=== PATIENT | male | born 1975 | race Caucasian/White ===

== ENCOUNTER 2017-04-12 10:35 | Emergency (ER) | payer BC ==
[2017-04-12] MEDS ORDERED: Sodium Chloride 0.9% 10 ML Syringe FLUSH PRN (10:40)
[2017-04-12] MEDS ORDERED: Sodium Chloride 0.9% 1,000 ML IV SCH (10:45)
[2017-04-12] MEDS ORDERED: LORazepam 2 MG/ML MDV IVPUSH ONE (10:49)
--- NOTE | 2017-04-12 10:56 | EDM.PDOC ---
ED HPI GENERAL MEDICAL PROBLEM - General Chief Complaint: Cardiovascular Problem Stated Complaint: LEFT ARM NUMBNESS; NECK PAIN; CHEST PAIN Time Seen by Provider: 04/12/17 10:39 Source of Information: Reports: Patient, Family, RN, RN Notes Reviewed History Limitations: Reports: No Limitations - History of Present Illness INITIAL COMMENTS - FREE TEXT/NARRATIVE: Patient presents to the emergency room at [facility] complaining of left arm numbness, bilateral neck pain, and acute chest pain. The patient's symptoms began about one hour prior to presentation. The patient states that his left arm feels "like it fell asleep." The patient states that his chest pain is substernal, more so on the left side. He denies any shortness of breath. The patient states he currently has a headache. The patient denies any visual field disturbances. The patient complains of dizziness and ataxia. The patient does have a medical history of hypertension and anxiety. No previous cardiac or neurological problems in the past. The patient denies any tingling or paresthesia to any extremity. The patient denies any nausea vomiting or diarrhea. Onset: Today Onset Date: 04/12/17 Onset Time: 10:00 - Related Data Home Meds: Home Meds Aspirin 325 mg PO DAILY 04/12/17 [History] LORazepam 0.5 mg PO BID PRN 04/12/17 [History] Lisinopril 10 mg PO DAILY 04/12/17 [History] Metoprolol Succinate [Toprol XL] 50 mg PO DAILY 04/12/17 [History] PARoxetine [Paxil] 20 mg PO DAILY 04/12/17 [History] ED ROS GENERAL - Review of Systems Review Of Systems: See Below Constitutional: Reports: Weakness. Denies: Fever, Chills Respiratory: Denies: Shortness of Breath, Cough Cardiovascular: Reports: Chest Pain, Blood Pressure Problem, Lightheadedness. Denies: Palpitations, Syncope GI/Abdominal: Denies: Abdominal Pain, Nausea, Vomiting Musculoskeletal: Reports: Neck Pain, Muscle Pain Skin: Reports: No Symptoms Neurological: Reports: Dizziness, Headache, Numbness. Denies: Paresthesia, Tingling ED EXAM, GENERAL - Physical Exam Exam: See Below Exam Limited By: No Limitations General Appearance: Alert, Mild Distress Eye Exam: Bilateral Eye: EOMI, Normal Inspection, PERRL Head: Atraumatic, Normocephalic Neck: Limited Range of Motion (due to pain), Tender Lateral Respiratory/Chest: No Respiratory Distress, Lungs Clear, Normal Breath Sounds Cardiovascular: Normal Peripheral Pulses, Regular Rate, Rhythm, No Murmur Peripheral Pulses: 2+: Radial (L), Radial (R) GI/Abdominal: Normal Bowel Sounds, Soft, Non-Tender Extremities: Normal Inspection, Normal Range of Motion Neurological: Alert, Oriented, Normal Cognition, No Motor/Sensory Deficits Skin Exam: Warm, Dry, Intact, Normal Color, No Rash EKG INTERPRETATION EKG Date: 04/12/17 Time: 10:41 Rhythm: NSR Rate (beats/min): 69 [place]: normal P-wave: present QRS: normal ST-T: normal QT: normal WA/PQ Interval: 0.16 Comparison: NA - no prior EKG EKG Interpretation Comments: Sinus Rhythm with sinus arrhythmia Voltage criteria for LVH Course - Orders/Labs/Meds Orders: Active Orders 24 hr Category Date Time Status EKG 12 Lead [EKG Documentation Completion] [RC] STAT Care 04/12/17 10:40 Active Cervical Spine wo Cont [CT] Stat Exams 04/12/17 10:43 Taken Head wo Cont [CT] Stat Exams 04/12/17 10:41 Taken Sodium Chloride 0.9% [Normal Saline] 1,000 ml Med 04/12/17 10:45 Active IV ASDIRECTED Sodium Chloride 0.9% [Saline Flush] Med 04/12/17 10:40 Active 10 ml FLUSH ASDIRECTED PRN Peripheral IV Insertion Adult [OM.PC] Routine Oth 04/12/17 10:40 Ordered Medication Orders Sodium Chloride (Normal Saline) 1,000 mls @ 999 mls/hr IV ASDIRECTED [facility] Last Admin: 04/12/17 10:53 Dose: 999 mls/hr Sodium Chloride (Saline Flush) 10 ml FLUSH ASDIRECTED PRN PRN Reason: Keep Vein Open Labs: Laboratory Tests 04/12/17 04/12/17 04/12/17 Range/Units 10:53 10:53 10:53 WBC 7.5 (4.0-10.0) x10^3/uL RBC 4.82 (4.5-6.0) x10^6/uL Hgb 15.2 (14.0-18.0) g/dL Hct 43.8 (40.0-52.0) % MCV 90.9 (78.0-93.0) fL MCH 31.5 (26.0-32.0) pg MCHC 34.7 (32.0-36.0) g/dL RDW Coeff of Ben 13.3 (10.0-15.0) % Plt Count 231 (130-400) x10^3/uL Neut % (Auto) 66.9 (50.0-80.0) % Lymph % (Auto) 20.7 L (25.0-50.0) % [place] % (Auto) 9.5 (2.0-11.0) % Eos % (Auto) 2.6 (0.0-4.0) % Baso % (Auto) 0.3 (0.2-1.2) % PT 10.8 (10.0-12.8) SEC INR 1.0 L (2.0-3.5) Sodium 137 (136-145) mmol/L Potassium 4.4 (3.5-5.1) mmol/L Chloride 99 (98-107) mmol/L Carbon Dioxide 31 (21-32) mmol/L BUN 9 (7-18) mg/dL Creatinine 0.9 (0.70-1.30) mg/dL Est Cr Clr Drug Dosing TNP Estimated GFR (MDRD) > 60 Glucose 99 (74-106) mg/dL Calcium 9.0 (8.5-10.1) mg/dL Corrected Calcium 9.16 (8.5-10.1) mg/dL Phosphorus 3.3 (2.6-4.7) mg/dL Magnesium 1.7 L (1.8-2.4) mg/dL Total Bilirubin 0.3 (0.2-1.0) mg/dL AST 16 (15-37) U/L ALT 28 (16-63) U/L Alkaline Phosphatase 78 (46-116) U/L Creatine Kinase 67 (39-308) U/L Creatine Kinase Index Cancelled CK-MB (CK-2) Cancelled POC Troponin I (0.00-0.08) ng/mL Total Protein 8.0 (6.4-8.2) g/dL Albumin 3.8 (3.4-5.0) g/dL Globulin 4.2 Albumin/Globulin Ratio 0.90 05/28/17 Range/Units 10:59 WBC (4.0-10.0) x10^3/uL RBC (4.5-6.0) x10^6/uL Hgb (14.0-18.0) g/dL Hct (40.0-52.0) % MCV (78.0-93.0) fL MCH (26.0-32.0) pg MCHC (32.0-36.0) g/dL RDW Coeff of Ben (10.0-15.0) % Plt Count (130-400) x10^3/uL Neut % (Auto) (50.0-80.0) % Lymph % (Auto) (25.0-50.0) % [place] % (Auto) (2.0-11.0) % Eos % (Auto) (0.0-4.0) % Baso % (Auto) (0.2-1.2) % PT (10.0-12.8) SEC INR (2.0-3.5) Sodium (136-145) mmol/L Potassium (3.5-5.1) mmol/L Chloride (98-107) mmol/L Carbon Dioxide (21-32) mmol/L BUN (7-18) mg/dL Creatinine (0.70-1.30) mg/dL Est Cr Clr Drug Dosing Estimated GFR (MDRD) Glucose (74-106) mg/dL Calcium (8.5-10.1) mg/dL Corrected Calcium (8.5-10.1) mg/dL Phosphorus (2.6-4.7) mg/dL Magnesium (1.8-2.4) mg/dL Total Bilirubin (0.2-1.0) mg/dL AST (15-37) U/L ALT (16-63) U/L Alkaline Phosphatase (46-116) U/L Creatine Kinase (39-308) U/L Creatine Kinase Index CK-MB (CK-2) POC Troponin I 0.00 (0.00-0.08) ng/mL Total Protein (6.4-8.2) g/dL Albumin (3.4-5.0) g/dL Globulin Albumin/Globulin Ratio Meds: Medications Generic Name Dose Route Start Last Admin Trade Name Freq PRN Reason Stop Dose Admin Sodium Chloride 1,000 mls @ 999 mls/hr 04/12/17 10:45 04/12/17 10:53 Normal Saline IV 999 mls/hr ASDIRECTED JIM Administration Sodium Chloride 10 ml 04/12/17 10:40 Saline Flush FLUSH ASDIRECTED PRN Keep Vein Open Discontinued Medications Generic Name Dose Route Start Last Admin Trade Name Freq PRN Reason Stop Dose Admin Lorazepam 1 mg 04/12/17 10:49 04/12/17 10:59 Ativan IVPUSH 04/12/17 10:50 1 mg ONETIME ONE Administration - Radiology Interpretation Free Text/Narrative:: CT of Head: No plain CT evidence of acute intracranial process CT of C-Spine: No bony abnormality of cervical spine See scanned documents in EMR CT Results Date: 04/12/17 CT Results Time: 11:34 Departure - Departure Time of Disposition: 12:03 Disposition: Home, Self-Care 01 Reason for Transfer *Q: Other Condition: good Clinical Impression: Left arm numbness, Neck pain, Anxiety Instructions: Muscle Pain, Adult, Panic Attacks, [id number] Referrals: Kathie Galaviz MD [Primary Care Provider] - Forms: ED Department Discharge Additional Instructions: 1. All testing was normal; no evidence of stroke or heart attack 2. Stay well hydrated and rest 3. Continue currently medications without any changes 4. See your Primary as symptoms warrant - Problem List Review Problem List Initiated/Reviewed/Updated: Yes - My Orders Last 24 Hours: My Active Orders 04/12/17 10:40 EKG 12 Lead [EKG Documentation Completion] [RC] STAT Sodium Chloride 0.9% [Saline Flush] 10 ml FLUSH ASDIRECTED PRN Peripheral IV Insertion Adult [OM.PC] Routine 04/12/17 10:41 Head wo Cont [CT] Stat 04/12/17 10:43 Cervical Spine wo Cont [CT] Stat 04/12/17 10:45 Sodium Chloride 0.9% [Normal Saline] 1,000 ml IV ASDIRECTED - Assessment/Plan Last 24 Hours: My Active Orders 04/12/17 10:40 EKG 12 Lead [EKG Documentation Completion] [RC] STAT Sodium Chloride 0.9% [Saline Flush] 10 ml FLUSH ASDIRECTED PRN Peripheral IV Insertion Adult [OM.PC] Routine 04/12/17 10:41 Head wo Cont [CT] Stat 04/12/17 10:43 Cervical Spine wo Cont [CT] Stat 04/12/17 10:45 Sodium Chloride 0.9% [Normal Saline] 1,000 ml IV ASDIRECTED
[2017-04-12 11:31] LABS: CHLORIDE,CL 99 mmol/L (98-107); SODIUM,NA 137 mmol/L (136-145)
[2017-04-12 14:03] VITALS: BP 185/106
== END 2017-04-12 12:10 | disposition home or self-care (01) ==
LOC: VM.ED 10:35
DX: M54.2 Cervicalgia (principal); R20.0 Anesthesia of skin; F41.9 Anxiety disorder, unspecified; Z79.82 Long term (current) use of aspirin; Z79.899 Other long term (current) drug therapy
CPT/HCPCS: 36415; 70450; 72125; 80053; 82550; 83735; 84100; 84484; 85025; 85610; 93005; 96361; 96374; 99285; J2060; J7030

== ENCOUNTER 2021-07-09 16:22 | Emergency (ER) | payer SELFPAY ==
--- NOTE | 2021-07-09 16:50 | EDM.PDOC ---
ED HPI GENERAL MEDICAL PROBLEM - General Chief Complaint: Chest Pain Stated Complaint: chest pain Time Seen by Provider: 07/09/21 16:35 Source of Information: Reports: Patient History Limitations: Reports: No Limitations - History of Present Illness INITIAL COMMENTS - FREE TEXT/NARRATIVE: Patient presents ER today with ongoing chest pain that is been intermittent for the last month or so. Patient describes it it lasts a few seconds intermittently throughout the day seems to get worse at night when he is laying down in the bed he describes the pain about a 5 out of 10 and he can sit up and grab his chest and help resolve the pain. He was getting dressed today to come to the ER to get checked out when he noticed that his left arm started hurting as well. He states he has been having some dyspnea on exertion over the last month as well at about 10 to 15 feet. But he denies any orthopnea PND extremity edema. He saw his primary care provider about 2 weeks ago mentioning the chest pain but states he did not receive any type of testing or work-up. He has seen cardiology in the past where he was diagnosed with left ventricular cardiomegaly off of an echo he did have a nuclear stress test but was unable to complete it secondary to something came up during the test. He has never had a cardiac cath Does have a significant cardiac family history he also smokes 1 and half to 2 packs a day and a heavy alcohol usage history he is recently quit about a week and a half ago drinking. He has no other complaints at this time Duration: Week(s): Location: Reports: Chest Quality: Reports: Sharp Improves with: Reports: Other (See HPI) Worsens with: Reports: None, Movement Context: Reports: Activity Associated Symptoms: Reports: Chest Pain. Denies: Confusion, Cough, Diaphoresis, Headaches, Loss of Appetite, Malaise, Nausea/Vomiting, Shortness of Breath, Syncope, Weakness - Related Data Allergies Allergy/AdvReac Type Severity Reaction Status Date / Time No Known Allergies Allergy Verified 07/09/21 16:45 Home Meds: Home Meds Aspirin 325 mg PO DAILY 04/12/17 [History] LORazepam 0.5 mg PO BID PRN 04/12/17 [History] Lisinopril 10 mg PO DAILY 04/12/17 [History] Metoprolol Succinate [Toprol XL] 100 mg PO DAILY 05/28/17 [History] Albuterol Sulfate [Albuterol Sulfate HFA] 8.5 gm INH Q4HR 07/09/21 [History] Escitalopram Oxalate [Lexapro] 5 mg PO DAILY 07/09/21 [History] Gabapentin [Neurontin] 100 mg PO TID 07/09/21 [History] guaiFENesin [Mucinex] 600 mg PO BID 07/09/21 [History] Past Medical History Cardiovascular History: Reports: High Cholesterol, Hypertension Psychiatric History: Reports: Anxiety ED ROS GENERAL - Review of Systems Review Of Systems: See Below Constitutional: Reports: No Symptoms HEENT: Reports: No Symptoms Respiratory: Reports: No Symptoms Cardiovascular: Reports: Chest Pain, Dyspnea on Exertion. Denies: Blood Pressure Problem, Claudication, Edema, Lightheadedness, Orthopnea, Palpitations, PND, Syncope Endocrine: Reports: No Symptoms GI/Abdominal: Reports: No Symptoms : Reports: No Symptoms Musculoskeletal: Reports: No Symptoms Skin: Reports: No Symptoms Neurological: Reports: No Symptoms Psychiatric: Reports: No Symptoms Hematologic/Lymphatic: Reports: No Symptoms Immunologic: Reports: No Symptoms ED EXAM, GENERAL - Physical Exam Exam: See Below Exam Limited By: No Limitations General Appearance: Alert, WD/WN, No Apparent Distress Eye Exam: Bilateral Eye: Normal Inspection Nose: Normal Inspection Throat/Mouth: Normal Inspection, Normal Lips, Normal Teeth, Normal Gums, Normal Oropharynx, Normal Voice, No Airway Compromise Head: Atraumatic, Normocephalic Neck: Normal Inspection, Supple, Non-Tender, Full Range of Motion Respiratory/Chest: No Respiratory Distress, Lungs Clear, Normal Breath Sounds, No Accessory Muscle Use, Chest Non-Tender Cardiovascular: Normal Peripheral Pulses, Regular Rate, Rhythm, No Edema, No Gallop, No JVD, No Murmur, No Rub GI/Abdominal: Normal Bowel Sounds, Soft, Non-Tender, No Organomegaly, No Distention, No Abnormal Bruit Back Exam: Normal Inspection, Full Range of Motion Extremities: Normal Inspection, Normal Range of Motion, Non-Tender, No Pedal Edema, Normal Capillary Refill Neurological: Alert, Oriented, CN II-XII Intact, Normal Cognition Psychiatric: Normal Affect, Normal Mood Skin Exam: Warm, Dry, Intact, Normal Color, No Rash #1 Interpretation EKG Date: 07/09/21 Time: 16:20 Rhythm: NSR Ruby: Normal P-Wave: Present QRS: Normal ST-T: Normal QT: Normal Course - Vital Signs Text/Narrative:: CBC BMP troponin EKG chest x-ray BMP K+ 3.4 trop 5 ekg NSR NAF CXR NAF will have pt f/u with pcp Last Recorded V/S: Last Vital Signs Temp 36.2 C 07/09/21 16:45 Pulse 84 07/09/21 17:06 Resp 16 07/09/21 17:06 BP 118/92 H 07/09/21 17:06 Pulse Ox 98 07/09/21 17:06 - Orders/Labs/Meds Labs: Laboratory Tests 07/09/21 07/09/21 Range/Units 16:40 16:40 WBC 8.1 (4.0-10.0) x10^3/uL RBC 3.77 L (4.5-6.0) x10^6/uL Hgb 13.4 L (14.0-18.0) g/dL Hct 37.7 L (40.0-52.0) % MCV 100.0 H (78.0-93.0) fL MCH 35.5 H (26.0-32.0) pg MCHC 35.5 (32.0-36.0) g/dL RDW Coeff of Ben 13.3 (10.0-15.0) % Plt Count 229 (130-400) x10^3/uL Immature Gran % (Auto) 0.20 (0.00-0.43) % Neut % (Auto) 72.0 (50.0-80.0) % Lymph % (Auto) 18.5 L (25.0-50.0) % [place] % (Auto) 8.7 (2.0-11.0) % Eos % (Auto) 0.4 (0.0-4.0) % Baso % (Auto) 0.2 (0.2-1.2) % Neut # (Auto) 5.8 (1.8-7.7) x10^3/uL Lymph # (Auto) 1.5 (1.0-4.8) x10^3/uL [place] # (Auto) 0.7 (0.0-0.8) x10^3/uL Eos # (Auto) 0.0 (0.0-0.5) x10^3/uL Baso # (Auto) 0.0 (0.0-0.2) x10^3/uL Immature Gran # (Auto) 0.02 (0.00-0.07) x10^3/uL Sodium 135 L (136-145) mmol/L Potassium 3.4 L (3.5-5.1) mmol/L Chloride 96 L (98-107) mmol/L Carbon Dioxide 30 (21-32) mmol/L Anion Gap 12.4 (5-15) mmol/L BUN 13 (7-18) mg/dL Creatinine 1.4 H (0.70-1.30) mg/dL Est Cr Clr Drug Dosing 58.59 mL/min Estimated GFR (MDRD) 54 Glucose 174 H (70-99) mg/dL Calcium 9.1 (8.5-10.1) mg/dL Troponin I High Sens 5 (<=76) ng/L Departure - Departure Time of Disposition: 17:20 Disposition: Home, Self-Care 01 Condition: Good Clinical Impression: Chest pain Instructions: Nonspecific Chest Pain, Adult Referrals: Maribel Sanchez MD [Primary Care Provider] - Forms: ED Department Discharge Additional Instructions: Follow-up with your primary care provider in the next 24 to 48 hours Contact your press clipper that you have seen before for a new appointment and follow-up in the next 2 to 3 days Return to the emergency room if anything gets worse or changes Sepsis Event Note (ED) - Focused Exam Vital Signs: Vital Signs Temp Pulse Resp BP Pulse Ox 07/09/21 17:06 84 16 118/92 H 98 07/09/21 16:45 36.2 C 85 14 139/96 H 98 - Problem List & Annotations (1) Chest pain SNOMED Code(s): 67107562 Code(s): R07.9 - CHEST PAIN, UNSPECIFIED Status: Acute Current Visit: Yes
[2021-07-09 17:07] VITALS: BP 118/92; PULSE 84
[2021-07-09 17:10] LABS: ANION GAP 12.4 mmol/L (5-15)
--- NOTE | 2021-07-09 17:52 | CR ---
[id number] RAD/RAD Chest PA or AP 1V EXAM: RAD Chest PA or AP 1V INDICATION: CHEST PAIN. COMPARISON: June 04, 2020. DISCUSSION: Cardiomediastinal silhouette is stable in size and contour. No infiltrate, effusion, pneumothorax, or edema. IMPRESSION: No acute cardiopulmonary abnormality. Williams Richard DO 07/09/21 [id number] Thank you for allowing us to participate in the care of your patient.
== END 2021-07-09 18:00 | disposition home or self-care (01) ==
LOC: VM.ED 16:22
DX: R07.9 Chest pain, unspecified (principal); I10 Essential (primary) hypertension; F17.210 Nicotine dependence, cigarettes, uncomplicated; Z79.82 Long term (current) use of aspirin; Z79.899 Other long term (current) drug therapy
CPT/HCPCS: 71045; 80048; 84484; 85025; 93010; 99284; 99285-25

== ENCOUNTER 2021-09-21 17:27 | Emergency (ER) | payer SELFPAY ==
[2021-09-21] MEDS ORDERED: Propranolol 60 MG Cap.ER PO ONE (17:47)
[2021-09-21] MEDS ORDERED: Propranolol 20 MG Tab PO ONE (18:02)
[2021-09-21 18:16] LABS: CHLORIDE,CL 99 mmol/L (98-107); SODIUM,NA 136 mmol/L (136-145)
[2021-09-21 18:17] LABS: ANION GAP 15.4 mmol/L (5-15)
[2021-09-21 18:56] VITALS: BP 165/113; PULSE 88
--- NOTE | 2021-09-21 21:45 | EDM.PDOC ---
ED HPI GENERAL MEDICAL PROBLEM - General Chief Complaint: Cardiovascular Problem Stated Complaint: HIGH BP Time Seen by Provider: 09/21/21 17:35 Source of Information: Reports: Patient History Limitations: Reports: No Limitations - History of Present Illness INITIAL COMMENTS - FREE TEXT/NARRATIVE: Pt. presents to ER with complaints of elevated BP and tremor. He states that he has been out of his propranolol LA 80mg for the past several days because he was unable to pay for the medication. He states that he is having some chest tightness, fatigue, and generally feels unwell. Denies any recent illness. No fever or chills. No nausea, vomiting, or diarrhea. Pt. complains of mild headache. Denies any acute vision loss or change. No numbness/tingling in extremities or face. Denies in weakness in upper or lower extremities. Onset: Today Onset Date: 09/21/21 Location: Reports: Head, Generalized Severity: Moderate - Related Data Allergies Allergy/AdvReac Type Severity Reaction Status Date / Time No Known Allergies Allergy Verified 09/21/21 17:53 Home Meds: Home Meds Aspirin 325 mg PO DAILY 04/12/17 [History] Lisinopril 20 mg PO DAILY 04/12/17 [History] Albuterol Sulfate [Albuterol Sulfate HFA] 8.5 gm INH Q4HR 07/09/21 [History] Escitalopram Oxalate [Lexapro] 5 mg PO DAILY 07/09/21 [History] Gabapentin [Neurontin] 100 mg PO TID 07/09/21 [History] Propranolol [Inderal LA] 80 mg PO DAILY 09/21/21 [History] Past Medical History Cardiovascular History: Reports: High Cholesterol, Hypertension Psychiatric History: Reports: Anxiety Social & Family History - Tobacco Use Tobacco Use Status *Q: Current Every Day Tobacco User Years of Tobacco use: 30 Packs/Tins Daily: 0.5 ED ROS GENERAL - Review of Systems Review Of Systems: See Below Constitutional: Reports: Malaise, Fatigue HEENT: Reports: No Symptoms Respiratory: Reports: No Symptoms Cardiovascular: Reports: Chest Pain, Blood Pressure Problem, Dyspnea on Exertion Endocrine: Reports: No Symptoms GI/Abdominal: Reports: No Symptoms : Reports: No Symptoms Musculoskeletal: Reports: No Symptoms Skin: Reports: No Symptoms Neurological: Reports: Headache, Tremors. Denies: Confusion, Dizziness, Paresthesia, Seizure, Syncope, Tingling, Difficulty Walking, Weakness, Change in Speech, Gait Disturbance Psychiatric: Reports: No Symptoms Hematologic/Lymphatic: Reports: No Symptoms Immunologic: Reports: No Symptoms ED EXAM, GENERAL - Physical Exam Exam: See Below Exam Limited By: No Limitations General Appearance: Alert, WD/WN, No Apparent Distress Eye Exam: Bilateral Eye: EOMI, PERRL Head: Atraumatic, Normocephalic Neck: Normal Inspection, Supple, Non-Tender, Full Range of Motion Respiratory/Chest: No Respiratory Distress, Lungs Clear, Normal Breath Sounds, No Accessory Muscle Use, Chest Non-Tender Cardiovascular: Normal Peripheral Pulses, Regular Rate, Rhythm, No Edema, No JVD Peripheral Pulses: 4+: Femoral (L) GI/Abdominal: Soft, Non-Tender, No Distention (Male) Exam: Deferred Rectal (Males) Exam: Deferred Back Exam: Normal Inspection, Full Range of Motion Extremities: Normal Inspection, Normal Range of Motion, Non-Tender, No Pedal Edema, Normal Capillary Refill Neurological: Alert, Oriented, CN II-XII Intact, Normal Cognition, Normal Reflexes Psychiatric: Normal Affect, Normal Mood Skin Exam: Warm, Dry, Intact, Normal Color Lymphatic: No Adenopathy #1 Interpretation Rhythm: NSR Herman: Normal P-Wave: Present QRS: Normal ST-T: Normal QT: Normal Course - Vital Signs Last Recorded V/S: Last Vital Signs Temp 37.1 C 09/21/21 17:30 Pulse 88 09/21/21 18:30 Resp 14 09/21/21 18:30 BP 165/113 H 09/21/21 18:30 Pulse Ox 98 09/21/21 18:30 - Orders/Labs/Meds Labs: Laboratory Tests 09/21/21 09/21/21 Range/Units 17:47 17:47 WBC 7.1 (4.0-10.0) x10^3/uL RBC 4.09 L (4.5-6.0) x10^6/uL Hgb 13.1 L (14.0-18.0) g/dL Hct 37.5 L (40.0-52.0) % MCV 91.7 D (78.0-93.0) fL MCH 32.0 (26.0-32.0) pg MCHC 34.9 (32.0-36.0) g/dL RDW Coeff of Ben 12.6 (10.0-15.0) % Plt Count 239 (130-400) x10^3/uL Immature Gran % (Auto) 0.00 (0.00-0.43) % Neut % (Auto) 67.7 (50.0-80.0) % Lymph % (Auto) 21.4 L (25.0-50.0) % [place] % (Auto) 9.5 (2.0-11.0) % Eos % (Auto) 1.0 (0.0-4.0) % Baso % (Auto) 0.4 (0.2-1.2) % Neut # (Auto) 4.8 (1.8-7.7) x10^3/uL Lymph # (Auto) 1.5 (1.0-4.8) x10^3/uL [place] # (Auto) 0.7 (0.0-0.8) x10^3/uL Eos # (Auto) 0.1 (0.0-0.5) x10^3/uL Baso # (Auto) 0.0 (0.0-0.2) x10^3/uL Immature Gran # (Auto) 0.00 (0.00-0.07) x10^3/uL Sodium 136 (136-145) mmol/L Potassium 3.4 L (3.5-5.1) mmol/L Chloride 99 (98-107) mmol/L Carbon Dioxide 25 (21-32) mmol/L Anion Gap 15.4 H (5-15) mmol/L BUN 8 (7-18) mg/dL Creatinine 0.9 (0.70-1.30) mg/dL Est Cr Clr Drug Dosing TNP Estimated GFR (MDRD) > 60 Glucose 125 H (70-99) mg/dL Calcium 8.9 (8.5-10.1) mg/dL Corrected Calcium 9.5 (8.5-10.1) mg/dL Total Bilirubin 0.4 (0.2-1.0) mg/dL AST 19 (15-37) U/L ALT 15 L (16-63) U/L Alkaline Phosphatase 61 (46-116) U/L Troponin I High Sens 5 (<=76) ng/L Total Protein 7.1 (6.4-8.2) g/dL Albumin 3.3 L (3.4-5.0) g/dL Globulin 3.8 Albumin/Globulin Ratio 0.87 Meds: Medications Discontinued Medications Generic Name Dose Route Start Last Admin Trade Name Gianni PRN Reason Stop Dose Admin Propranolol HCl 80 mg 09/21/21 17:47 09/21/21 18:05 Propranolol 60 Mg Cap.Er PO 09/21/21 17:48 Not Given ONETIME ONE Propranolol HCl 80 mg 09/21/21 18:02 09/21/21 18:05 Propranolol 20 Mg Tab PO 09/21/21 18:03 80 mg ONETIME ONE Administration Propranolol HCl 60 mg 09/22/21 08:00 09/21/21 18:47 Propranolol 60 Mg Cap.Er PO 60 mg DAILY JIM Administration - Re-Assessments/Exams Free Text/Narrative Re-Assessment/Exam: Pt. was given propranolol immediate release 80mg in ER. Pt. was observed. Blood pressure noted to be starting to decrease. He was not longer experiencing any tremor, headache or chest tightness and states that he feels much improved. Departure - Departure Time of Disposition: 19:00 Disposition: Home, Self-Care 01 Clinical Impression: Hypertension Instructions: Propranolol Extended-Release Capsules, Hypertension, Adult Referrals: Maribel Sanchez MD [Primary Care Provider] - Forms: ED Department Discharge Additional Instructions: Take the propranolol pill tomorrow. We do not have the 80mg dose. You will need to fill this on Thursday. Return to ER if you have recurrent chest pain, feel anxious, have increased shortness of breath. Sepsis Event Note (ED) - Focused Exam Vital Signs: Vital Signs Temp Pulse Resp BP Pulse Ox 09/21/21 18:30 88 14 165/113 H 98 09/21/21 17:30 37.1 C 105 H 18 184/129 H 100 - Problem List Review Problem List Initiated/Reviewed/Updated: Yes - Assessment/Plan Plan: Pt. was discharged. Refill for propranolol LA was provided. Unfortunately the 80mg dose of this medication is not available at this facility and pharmacies are closed tomorrow. He was provided with propranolol LA 60mg to take tomorrow if he is unable to get to a pharmacy tomorrow. Return if recurrent chest pain, shortness or breath, problems with speech or ambulation. Otherwise continue with other medications as prescribed.
[2021-09-22] MEDS ORDERED: Propranolol 60 MG Cap.ER PO SCH (08:00)
== END 2021-09-21 18:49 | disposition home or self-care (01) ==
LOC: VM.ED 17:27
DX: I10 Essential (primary) hypertension (principal); E78.00 Pure hypercholesterolemia, unspecified; Z72.0 Tobacco use; Z79.82 Long term (current) use of aspirin; Z79.899 Other long term (current) drug therapy
CPT/HCPCS: 36415; 80053; 84484; 85025; 93010; 99283; 99283-25; A9270-GY

== ENCOUNTER 2021-10-23 11:43 | Emergency (ER) | payer SELFPAY ==
[2021-10-23] MEDS ORDERED: Sodium Chloride 0.9% 10 ML Syringe FLUSH PRN (12:02)
[2021-10-23] MEDS ORDERED: Aspirin 81 MG Tab.Chew PO ONE (12:04)
[2021-10-23 12:41] LABS: CHLORIDE,CL 99 mmol/L (98-107); SODIUM,NA 138 mmol/L (136-145)
[2021-10-23 12:42] LABS: ANION GAP 17.2 mmol/L (5-15)
[2021-10-23] MEDS ORDERED: Iopamidol 755 Mg/ML 100 ML Bottle IVPUSH ONE (14:03)
--- NOTE | 2021-10-23 14:11 | EDM.PDOC ---
ED HPI GENERAL MEDICAL PROBLEM - General Chief Complaint: Cardiovascular Problem Stated Complaint: HEART ISSUES Time Seen by Provider: 10/23/21 11:43 Source of Information: Reports: Patient History Limitations: Reports: No Limitations - History of Present Illness INITIAL COMMENTS - FREE TEXT/NARRATIVE: Pt. presents to ER with numerous complaints, including chest tightness, bila teral arm numbness/discomfort/tingling, neck pain, lightheadedness, and dizziness. He generally feels unwell. Pt. states that the symptoms started this AM. He states that he took his blood pressure at home at was concerned that it was 101/50. His heart rate was approx. 115 according to the machine. Pt. was no longer experiencing chest tightness by the time he got to the ER. Pt. states that he has a history of ETOH abuse but is "cutting back"; he states that he drinks about a 1.75 of grain alcohol in 1 week which is a lot less than previous. Pt. currently on lexapro, lisinopril 10mg daily, Inderal LA 80mg daily for chronic tremor/HTN, lorazepam 0.5mg BID. Pt. states that he is taking his medications as prescribed. Pt. states that the numbness, tinging and discomfort are distal to the elbows. Denies any involvement of the lower extremities. He was drinking heavily last night. Ex states that he has not been experiencing any slurred speech. He has been alert and interactive. No facial droop or problems with ambulation. Onset: Today Onset Date: 10/23/21 Location: Reports: Chest, Upper Extremity, Left, Upper Extremity, Right, Generalized - Related Data Allergies Allergy/AdvReac Type Severity Reaction Status Date / Time No Known Allergies Allergy Verified 10/23/21 14:17 Home Meds: Home Meds Aspirin 325 mg PO DAILY 04/12/17 [History] Lisinopril 20 mg PO DAILY 04/12/17 [History] Albuterol Sulfate [Albuterol Sulfate HFA] 8.5 gm INH Q4HR 07/09/21 [History] Escitalopram Oxalate [Lexapro] 5 mg PO DAILY 07/09/21 [History] Propranolol [Inderal LA] 80 mg PO DAILY 09/21/21 [History] Past Medical History Cardiovascular History: Reports: High Cholesterol, Hypertension Psychiatric History: Reports: Addiction, Anxiety Other Psychiatric History: ETOH Social & Family History - Tobacco Use Tobacco Use Status *Q: Unknown Ever Used Tobacco - Alcohol Use Date of Last Drink: 10/22/21 ED ROS GENERAL - Review of Systems Review Of Systems: See Below Constitutional: Reports: No Symptoms, Malaise, Weakness, Fatigue, Decreased Appetite. Denies: Fever, Chills HEENT: Reports: No Symptoms Respiratory: Reports: No Symptoms Cardiovascular: Reports: Chest Pain, Blood Pressure Problem Endocrine: Reports: No Symptoms GI/Abdominal: Reports: No Symptoms. Denies: Black Stool, Bloody Stool, Hematemesis, Hematochezia, Melena : Reports: No Symptoms Musculoskeletal: Reports: No Symptoms Skin: Reports: No Symptoms Neurological: Reports: Dizziness, Headache, Numbness, Paresthesia, Tingling, Tremors, Weakness. Denies: Change in Speech, Gait Disturbance Psychiatric: Reports: No Symptoms Hematologic/Lymphatic: Reports: No Symptoms Immunologic: Reports: No Symptoms ED EXAM, GENERAL - Physical Exam Exam: See Below Exam Limited By: No Limitations General Appearance: Alert, WD/WN, No Apparent Distress Eye Exam: Bilateral Eye: EOMI Nose: Normal Inspection, Normal Mucosa, No Blood Throat/Mouth: Normal Inspection, Normal Oropharynx, No Airway Compromise, Other (poor dentition) Head: Atraumatic, Normocephalic Neck: Normal Inspection, Supple, Full Range of Motion, Other (pain with rotation, flexion and extension of neck) Respiratory/Chest: No Respiratory Distress, Lungs Clear, No Accessory Muscle Use, Chest Non-Tender Cardiovascular: Normal Peripheral Pulses, Regular Rate, Rhythm, No Edema, No Gallop, No JVD, No Murmur Peripheral Pulses: 4+: Radial (L) GI/Abdominal: Soft, Non-Tender, No Organomegaly, No Distention, No Mass (Male) Exam: Deferred Rectal (Males) Exam: Deferred Back Exam: Normal Inspection, Full Range of Motion Extremities: Normal Inspection, Normal Range of Motion, Non-Tender, No Pedal Edema, Normal Capillary Refill Neurological: Alert, Oriented, CN II-XII Intact, Inattentive, Slow to Respond, Memory Loss Remote Events, Other (Poor recall of medical history, difficult time describing the timeline of his current symptoms.) Psychiatric: Anxious Skin Exam: Warm, Dry, Intact, Normal Color, No Rash Lymphatic: No Adenopathy #1 Interpretation Rhythm: NSR [place]: Normal P-Wave: Present QRS: Normal ST-T: Normal QT: Normal Course - Vital Signs Last Recorded V/S: Last Vital Signs Temp 36.7 C 10/23/21 11:43 Pulse 86 10/23/21 14:20 Resp 15 10/23/21 14:20 BP 114/80 10/23/21 14:20 Pulse Ox 94 L 10/23/21 14:20 - Orders/Labs/Meds Orders: Active Orders 24 hr Category Date Time Status FOLATE [REF] Stat Lab 10/23/21 12:13 Received VITAMIN B12 [REF] Stat Lab 10/23/21 12:13 Received Sodium Chloride 0.9% [Saline Flush] Med 10/23/21 12:02 Active 10 ml FLUSH ASDIRECTED PRN Peripheral IV Insertion Adult [OM.PC] Routine Oth 10/23/21 12:03 Ordered Medication Orders Sodium Chloride (Sodium Chloride 0.9% 10 Ml Syringe) 10 ml FLUSH ASDIRECTED PRN PRN Reason: Keep Vein Open Labs: Laboratory Tests 10/23/21 10/23/21 10/23/21 Range/Units 12:13 12:13 12:13 WBC 7.9 (4.0-10.0) x10^3/uL RBC 4.80 (4.5-6.0) x10^6/uL Hgb 15.0 D (14.0-18.0) g/dL Hct 43.0 (40.0-52.0) % MCV 89.6 (78.0-93.0) fL MCH 31.3 (26.0-32.0) pg MCHC 34.9 (32.0-36.0) g/dL RDW Coeff of Ben 13.3 (10.0-15.0) % Plt Count 193 (130-400) x10^3/uL Immature Gran % (Auto) 0.10 (0.00-0.43) % Neut % (Auto) 78.0 (50.0-80.0) % Lymph % (Auto) 14.0 L (25.0-50.0) % [place] % (Auto) 6.8 (2.0-11.0) % Eos % (Auto) 0.8 (0.0-4.0) % Baso % (Auto) 0.3 (0.2-1.2) % Neut # (Auto) 6.2 (1.8-7.7) x10^3/uL Lymph # (Auto) 1.1 (1.0-4.8) x10^3/uL [place]ock # (Auto) 0.5 (0.0-0.8) x10^3/uL Eos # (Auto) 0.1 (0.0-0.5) x10^3/uL Baso # (Auto) 0.0 (0.0-0.2) x10^3/uL Immature Gran # (Auto) 0.01 (0.00-0.07) x10^3/uL PT 10.5 (9.9-12.5) SEC INR 0.9 L (2.0-3.5) APTT (25.6-32.8) SEC Sodium 138 (136-145) mmol/L Potassium 4.2 (3.5-5.1) mmol/L Chloride 99 (98-107) mmol/L Carbon Dioxide 26 (21-32) mmol/L Anion Gap 17.2 H (5-15) mmol/L BUN 18 (7-18) mg/dL Creatinine 0.8 (0.70-1.30) mg/dL Est Cr Clr Drug Dosing TNP Estimated GFR (MDRD) > 60 Glucose 117 H (70-99) mg/dL Calcium 9.3 (8.5-10.1) mg/dL Corrected Calcium 9.9 (8.5-10.1) mg/dL Phosphorus 2.9 (2.6-4.7) mg/dL Magnesium 1.2 L (1.8-2.4) mg/dL Total Bilirubin 0.3 (0.2-1.0) mg/dL AST 21 (15-37) U/L ALT 20 (16-63) U/L Alkaline Phosphatase 67 (46-116) U/L Troponin I High Sens 5 (<=76) ng/L C-Reactive Protein < 0.2 (<=0.9) mg/dL Total Protein 7.7 (6.4-8.2) g/dL Albumin 3.3 L (3.4-5.0) g/dL Globulin 4.4 Albumin/Globulin Ratio 0.75 Ethyl Alcohol 56 H (0-3) mg/dL 10/23/21 Range/Units 12:13 WBC (4.0-10.0) x10^3/uL RBC (4.5-6.0) x10^6/uL Hgb (14.0-18.0) g/dL Hct (40.0-52.0) % MCV (78.0-93.0) fL MCH (26.0-32.0) pg MCHC (32.0-36.0) g/dL RDW Coeff of Ben (10.0-15.0) % Plt Count (130-400) x10^3/uL Immature Gran % (Auto) (0.00-0.43) % Neut % (Auto) (50.0-80.0) % Lymph % (Auto) (25.0-50.0) % [place]ock % (Auto) (2.0-11.0) % Eos % (Auto) (0.0-4.0) % Baso % (Auto) (0.2-1.2) % Neut # (Auto) (1.8-7.7) x10^3/uL Lymph # (Auto) (1.0-4.8) x10^3/uL [place]ock # (Auto) (0.0-0.8) x10^3/uL Eos # (Auto) (0.0-0.5) x10^3/uL Baso # (Auto) (0.0-0.2) x10^3/uL Immature Gran # (Auto) (0.00-0.07) x10^3/uL PT (9.9-12.5) SEC INR (2.0-3.5) APTT 26.4 (25.6-32.8) SEC Sodium (136-145) mmol/L Potassium (3.5-5.1) mmol/L Chloride (98-107) mmol/L Carbon Dioxide (21-32) mmol/L Anion Gap (5-15) mmol/L BUN (7-18) mg/dL Creatinine (0.70-1.30) mg/dL Est Cr Clr Drug Dosing Estimated GFR (MDRD) Glucose (70-99) mg/dL Calcium (8.5-10.1) mg/dL Corrected Calcium (8.5-10.1) mg/dL Phosphorus (2.6-4.7) mg/dL Magnesium (1.8-2.4) mg/dL Total Bilirubin (0.2-1.0) mg/dL AST (15-37) U/L ALT (16-63) U/L Alkaline Phosphatase (46-116) U/L Troponin I High Sens (<=76) ng/L C-Reactive Protein (<=0.9) mg/dL Total Protein (6.4-8.2) g/dL Albumin (3.4-5.0) g/dL Globulin Albumin/Globulin Ratio Ethyl Alcohol (0-3) mg/dL Meds: Medications Generic Name Dose Route Start Last Admin Trade Name Freq PRN Reason Stop Dose Admin Sodium Chloride 10 ml 10/23/21 12:02 Sodium Chloride 0.9% 10 Ml Syringe FLUSH ASDIRECTED PRN Keep Vein Open Discontinued Medications Generic Name Dose Route Start Last Admin Trade Name Freq PRN Reason Stop Dose Admin Aspirin 324 mg 10/23/21 12:04 10/23/21 11:48 Aspirin 81 Mg Tab.Chew PO 10/23/21 12:05 324 mg ONETIME ONE Administration Iopamidol 100 ml 10/23/21 14:03 10/23/21 14:03 Iopamidol 755 Mg/Ml 100 Ml Bottle IVPUSH 10/23/21 14:04 100 ml ONETIME ONE Administration - Radiology Interpretation Free Text/Narrative:: CT brain and cervical spine without contrast obtained, did not show any acute pathology. Degenerative change to c-spine, unchanged. Advised MRI as an outpatient. Departure - Departure Time of Disposition: 15:21 Disposition: Home, Self-Care 01 Clinical Impression: Cervical radiculopathy, Alcohol abuse, Hypomagnesemia, Alcoholic peripheral neuropathy Instructions: Hypomagnesemia Referrals: Maribel Sanchez MD [Primary Care Provider] - Forms: ED Department Discharge Additional Instructions: Magnesium 400mg over the counter 1 capsule 1-2 times daily. I would start with 1 and see how you tolerate this, as it can cause diarrhea. B12 and folate levels were obtained and are being sent to an outside lab. You will be notified of the result. You have diffuse degenerative changes to your cervical spine (neck). This is really unchanged from your previous CT in 2017. I advise you to discuss having an MRI with Dr. Sanchez, as this is a better test for neck pain/extremity numbness. Many of your symptoms may be caused by alcohol use. Notify Dr. Sanchez if you feel you are unable to quit drinking on your own. You are welcome to return to ER at any time as well. Recheck in clinic in 10-14 days. Sepsis Event Note (ED) - Focused Exam Vital Signs: Vital Signs Temp Pulse Resp BP Pulse Ox 10/23/21 14:20 86 15 114/80 94 L 10/23/21 13:55 84 15 117/80 95 10/23/21 13:10 82 16 119/83 96 10/23/21 12:41 79 15 112/78 93 L 10/23/21 12:10 94 15 115/84 95 10/23/21 11:43 36.7 C 99 16 136/97 H 99 - Problem List Review Problem List Initiated/Reviewed/Updated: Yes - My Orders Last 24 Hours: My Active Orders 10/23/21 12:02 Sodium Chloride 0.9% [Saline Flush] 10 ml FLUSH ASDIRECTED PRN 10/23/21 12:03 Peripheral IV Insertion Adult [OM.PC] Routine 10/23/21 12:13 FOLATE [REF] Stat VITAMIN B12 [REF] Stat - Assessment/Plan Last 24 Hours: My Active Orders 10/23/21 12:02 Sodium Chloride 0.9% [Saline Flush] 10 ml FLUSH ASDIRECTED PRN 10/23/21 12:03 Peripheral IV Insertion Adult [OM.PC] Routine 10/23/21 12:13 FOLATE [REF] Stat VITAMIN B12 [REF] Stat Plan: Magnesium 400mg over the counter 1 capsule 1-2 times daily. I would start with 1 and see how you tolerate this, as it can cause diarrhea. B12 and folate levels were obtained and are being sent to an outside lab. You will be notified of the result. You have diffuse degenerative changes to your cervical spine (neck). This is really unchanged from your previous CT in 2017. I advise you to discuss having an MRI with Dr. Sanchez, as this is a better test for neck pain/extremity numbness. Many of your symptoms may be caused by alcohol use. Notify Dr. Sanchez if you feel you are unable to quit drinking on your own. You are welcome to return to ER at any time as well. Recheck in clinic in 10-14 days.
--- NOTE | 2021-10-23 14:22 | CT ---
[id number] CT/CT Cervical Spine WO IV EXAM: NONCONTRAST CERVICAL SPINE CT INDICATION: BILATERAL ARM NUMBNESS. COMPARISON: April 12, 2017. DISCUSSION: Gentle reversal of the cervical lordosis is likely positional in similar to the prior study. No fracture or bone lesion is identified. No fracture or suspicious osseous lesion is identified. Mild to moderate disc degeneration C5-C6 and C6-C7 with milder changes at the remaining disc levels. Mild to moderate facet arthropathy throughout the cervical spine. No severe osseous central or foraminal stenosis. MRI could provide further assessment. Changes in the lung apices. IMPRESSION: 1. Mild cervical spondylosis. Sloan Summers MD 10/23/21 [id number] Thank you for allowing us to participate in the care of your patient.
--- NOTE | 2021-10-23 14:30 | CT ---
[id number] CT/CTA Head EXAM: CTA Head, noncontrast head CT. INDICATION: ARM NUMBNESS BOTH ARMS. COMPARISON: None. DISCUSSION: There is scattered hard plaque in both cavernous internal carotid arteries. No large vessel occlusion, aneurysm, significant stenosis, or other acute findings. Conventional [place] anatomy. Mild frontal predominance cerebral atrophy. No mass effect, acute hemorrhage, midline shift, hydrocephalus or acute territorial infarct is identified. No extra-axial collection. Right frontal sinus fluid. The paranasal sinuses are otherwise unremarkable. IMPRESSION: 1. No acute findings. Sloan Summers MD 10/23/21 [id number] Thank you for allowing us to participate in the care of your patient.
[2021-10-23 14:35] VITALS: BP 114/80; PULSE 86
== END 2021-10-23 15:07 | disposition home or self-care (01) ==
LOC: VM.ED 11:43
DX: M54.12 Radiculopathy, cervical region (principal); G62.1 Alcoholic polyneuropathy; F10.188 Alcohol abuse with other alcohol-induced disorder; E83.42 Hypomagnesemia; E78.00 Pure hypercholesterolemia, unspecified; I10 Essential (primary) hypertension; Z79.82 Long term (current) use of aspirin; Z79.899 Other long term (current) drug therapy; Y90.2 Blood alcohol level of 40-59 mg/100 ml
CPT/HCPCS: 36415; 70496; 72125; 80053; 80307; 82607; 82746; 83735; 84100; 84484; 85025; 85610; 85730; 86140; 93005; 93010; 99284; 99285-25; A9270-GY; Q9967

== ENCOUNTER 2023-04-18 09:58 | Inpatient (IN) | payer MEDICAID, OTHER ==
[2023-04-18] MEDS ORDERED: Sodium Chloride 0.9% 10 ML Syringe FLUSH PRN (10:07)
[2023-04-18] MEDS ORDERED: LORazepam 2 MG/ML SDV IVPUSH ONE (10:09)
[2023-04-18] MEDS ORDERED: Sodium Chloride 0.9% 1,000 ML IV SCH (10:15)
[2023-04-18 10:22] LABS: BASOPHILS PERCENT AUTO 0.3 % (0.2-1.2); EOSINOPHILS PERCENT AUTO 0.4 % (0.0-4.0); HEMATOCRIT 38.1 % (40.0-52.0); HEMOGLOBIN 13.9 g/dL (14.0-18.0); IMMATURE GRAN ABSOLUTE AUTO 0.02 x10^3/uL (0.00-0.07); LYMPHOCYTES ABSOLUTE AUTO 0.7 x10^3/uL (1.0-4.8); LYMPHOCYTES PERCENT AUTO 6.8 % (25.0-50.0); MEAN CORPUSCULAR HEMOGLOBIN 33.1 pg (26.0-32.0); MEAN CORPUSCULAR HGB CONC 36.5 g/dL (32.0-36.0); MEAN CORPUSCULAR VOLUME 90.7 fL (78.0-93.0); MONOCYTES PERCENT AUTO 9.8 % (2.0-11.0); NEUTROPHILS ABSOLUTE AUTO 8.6 x10^3/uL (1.8-7.7); NEUTROPHILS PERCENT AUTO 82.5 % (50.0-80.0); PLATELET COUNT,PLT 131 x10^3/uL (130-400); WHITE BLOOD CELL COUNT,WBC 10.4 x10^3/uL (4.0-10.0)
[2023-04-18 10:35] LABS: PROTHROMBIN TIME 10.5 SEC (9.5-12.2); PTT,PARTIAL THROMBOPLSTIN TIME 27.9 SEC (23.6-33.6)
[2023-04-18 10:41] LABS: LACTIC ACID 2.1 mmol/L (0.4-2.0)
[2023-04-18 10:48] LABS: A/G RATIO 0.62; ALANINE AMINOTRANSFERASE,ALT 35 U/L (16-63); ALBUMIN 3.1 g/dL (3.4-5.0); ALKALINE PHOSPHATASE 83 U/L (46-116); AMYLASE 22 U/L (25-115); ASPARTATE AMNIOTRANSFERASE,AST 48 U/L (15-37); BLOOD UREA NITROGEN,BUN 23 mg/dL (7-18); C-REACTIVE PROTEIN 5.6 mg/dL (<=0.9); CALCIUM 9.6 mg/dL (8.5-10.1); CARBON DIOXIDE,CO2 31 mmol/L (21-32); CHLORIDE,CL 92 mmol/L (98-107); CREATININE 0.8 mg/dL (0.70-1.30); ETHANOL BLOOD MEDICAL 6 mg/dL (0-3); GLUCOSE RANDOM 149 mg/dL (70-99); PHOSPHORUS 2.4 mg/dL (2.6-4.7); POTASSIUM,K 3.5 mmol/L (3.5-5.1); PROTEIN TOTAL,TP 8.1 g/dL (6.4-8.2); SODIUM,NA 137 mmol/L (136-145)
[2023-04-18 10:50] LABS: ANION GAP 17.5 mmol/L (5-15); ESTIMATED GFR 108 mL/min (>=60); MAGNESIUM 0.9 mg/dL (1.8-2.4)
[2023-04-18] MEDS ORDERED: Magnesium Sulfate/Water 4 GM in Premix Bag 1 BAG IV ONE (10:53)
[2023-04-18] MEDS ORDERED: Haloperidol Lactate 5 MG/ML SDV IV PRN (11:46)
[2023-04-18] MEDS ORDERED: PHENobarbitaL sodium 260 MG in Sodium Chloride 0.9% 100 ML IV ONE (11:53)
[2023-04-18] MEDS ORDERED: Folic Acid 1 MG Tab PO SCH (12:00)
[2023-04-18] MEDS ORDERED: Pantoprazole 40 MG Tab.CR PO SCH (12:00)
[2023-04-18] MEDS ORDERED: Multivitamin Tab PO SCH (12:00)
[2023-04-18] MEDS ORDERED: Thiamine 100 MG Tab PO SCH (12:00)
[2023-04-18] MEDS ORDERED: cloNIDine 0.1 MG Tab PO PRN (12:04)
[2023-04-18 12:05] LABS: APPEARANCE,URINE SLIGHTLY CLOUDY (CLEAR); BILIRUBIN,URINE NEGATIVE (NEGATIVE); COLOR,URINE DARK YELLOW (YELLOW); GLUCOSE,URINE 100 mg/dL (NEGATIVE); KETONES,URINE TRACE mg/dL (NEGATIVE); LEUKOCYTE ESTERASE,URINE TRACE (NEGATIVE); NITRITE,URINE NEGATIVE (NEGATIVE); OCCULT BLOOD,URINE TRACE-INTACT (NEGATIVE); PROTEIN,URINE 100 mg/dL (NEGATIVE)
[2023-04-18] MEDS ORDERED: Ondansetron 4 MG Tab.DIS PO PRN (12:07)
[2023-04-18] MEDS ORDERED: Acetaminophen 325 MG Tab PO PRN (12:07)
[2023-04-18 12:08] LABS: AMPHETAMINES SCREEN, URINE NEGATIVE (NEGATIVE); BARBITURATE SCREEN,URINE NEGATIVE (NEGATIVE); BENZODIAZEPINES SCREEN,URINE NEGATIVE (NEGATIVE); BUPRENORPHINE SCREEN,URINE NEGATIVE (NEGATIVE); COCAINE METABOLITES,URINE NEGATIVE (NEGATIVE); METHADONE SCREEN, URINE NEGATIVE (NEGATIVE); METHAMPHETAMINE SCREEN, URINE NEGATIVE (NEGATIVE); OXYCODONE SCREEN,URINE NEGATIVE (NEGATIVE); PCP SCREEN,URINE NEGATIVE (NEGATIVE); THC SCREEN,URINE 50 NG/ML NEGATIVE (NEGATIVE)
[2023-04-18 12:11] LABS: RBC,URINE 0-5 /HPF (NOT SEEN)
[2023-04-18 12:12] LABS: BACTERIA,URINE OCCASIONAL /HPF (NOT SEEN); MUCUS,URINE FEW /LPF (NOT SEEN); SQUAMOUS EPITHELIAL CELLS,UR NOT SEEN /HPF (NOT SEEN)
[2023-04-18] MEDS ORDERED: Nicotine 21 MG/24 Hr Patch TRDERM SCH (13:00)
[2023-04-18] MEDS: Sodium Chloride 0.9% 1,000 ML IV SCH ×2 (13:07→20:19)
[2023-04-18 13:36] LABS: HEMOGLOBIN A1C 5.8 % (<5.7)
[2023-04-18] MEDS ORDERED: Albuterol HFA 18 Gm Inhaler INH PRN (13:52)
[2023-04-18] MEDS ORDERED: Propranolol 80 MG Cap.ER PO SCH (18:30)
[2023-04-18] MEDS ORDERED: Naltrexone 50 MG Tab PO SCH (21:00)
[2023-04-19 01:18] VITALS: BP 148/103; PULSE 67
[2023-04-19] MEDS ORDERED: Citalopram 10 MG Tab PO SCH (09:00)
== END 2023-04-19 05:59 | disposition left against medical advice (07) | DRG 894 ==
LOC: VM.ED 09:58 → VM.MS 11:29
PROVIDERS: ADMIT Nurse Practitioner Family; ATTEND Family Medicine
DX: F10.139 Alcohol abuse with withdrawal, unspecified (principal); I42.6 Alcoholic cardiomyopathy; F10.129 Alcohol abuse with intoxication, unspecified; F17.210 Nicotine dependence, cigarettes, uncomplicated; F41.1 Generalized anxiety disorder; E78.00 Pure hypercholesterolemia, unspecified; E83.42 Hypomagnesemia; I10 Essential (primary) hypertension; Z98.890 Other specified postprocedural states; Z88.8 Allergy status to other drugs, medicaments and biological substances; Z79.82 Long term (current) use of aspirin; Z79.899 Other long term (current) drug therapy; Z79.51 Long term (current) use of inhaled steroids
CPT/HCPCS: 36415; 80053; 80305-QW; 80307; 81001; 82140; 82150; 83036; 83605; 83690; 83735; 84100; 84443; 85025; 85610; 85730; 86140; 87086; 93005; 93010; 96365; 96375; 99284; 99285-25; A9270-GY; J2060; J2560; J3360; J3475; J3490; J7030

== ENCOUNTER 2023-04-24 10:18 | Inpatient (IN) | payer MEDICAID ==
[2023-04-24 10:48] LABS: BASOPHILS PERCENT AUTO 0.2 % (0.2-1.2); EOSINOPHILS PERCENT AUTO 0.3 % (0.0-4.0); HEMATOCRIT 37.7 % (40.0-52.0); HEMOGLOBIN 13.6 g/dL (14.0-18.0); IMMATURE GRAN ABSOLUTE AUTO 0.02 x10^3/uL (0.00-0.07); LYMPHOCYTES ABSOLUTE AUTO 0.8 x10^3/uL (1.0-4.8); LYMPHOCYTES PERCENT AUTO 7.4 % (25.0-50.0); MEAN CORPUSCULAR HEMOGLOBIN 32.8 pg (26.0-32.0); MEAN CORPUSCULAR HGB CONC 36.1 g/dL (32.0-36.0); MEAN CORPUSCULAR VOLUME 90.8 fL (78.0-93.0); MONOCYTES ABSOLUTE AUTO 1.1 x10^3/uL (0.0-0.8); MONOCYTES PERCENT AUTO 9.9 % (2.0-11.0); NEUTROPHILS ABSOLUTE AUTO 8.8 x10^3/uL (1.8-7.7); PLATELET COUNT,PLT 228 x10^3/uL (130-400); RED BLOOD CELL COUNT 4.15 x10^6/uL (4.5-6.0); WHITE BLOOD CELL COUNT,WBC 10.7 x10^3/uL (4.0-10.0)
[2023-04-24] MEDS: Sodium Chloride 0.9% 1,000 ML IV ONE ×2 (10:55→11:52)
[2023-04-24 11:01] LABS: APPEARANCE,URINE CLEAR (CLEAR); BILIRUBIN,URINE MODERATE (NEGATIVE); COLOR,URINE AMBER (YELLOW); GLUCOSE,URINE 100 mg/dL (NEGATIVE); KETONES,URINE 80 mg/dL (NEGATIVE); LEUKOCYTE ESTERASE,URINE NEGATIVE (NEGATIVE); NITRITE,URINE NEGATIVE (NEGATIVE); OCCULT BLOOD,URINE TRACE-INTACT (NEGATIVE); PH,URINE 5.5 (5.0-8.0); PROTEIN,URINE >=300 mg/dL (NEGATIVE)
[2023-04-24 11:03] LABS: A/G RATIO 0.56; ALANINE AMINOTRANSFERASE,ALT 24 U/L (16-63); ALBUMIN 2.9 g/dL (3.4-5.0); ALKALINE PHOSPHATASE 109 U/L (46-116); ASPARTATE AMNIOTRANSFERASE,AST 25 U/L (15-37); BILIRUBIN TOTAL 0.7 mg/dL (0.2-1.0); BLOOD UREA NITROGEN,BUN 12 mg/dL (7-18); CARBON DIOXIDE,CO2 29 mmol/L (21-32); CHLORIDE,CL 92 mmol/L (98-107); CREATININE 0.9 mg/dL (0.70-1.30); ETHANOL BLOOD MEDICAL 164 mg/dL (0-3); GLUCOSE RANDOM 169 mg/dL (70-99); POTASSIUM,K 4.7 mmol/L (3.5-5.1); PROTEIN TOTAL,TP 8.1 g/dL (6.4-8.2); SODIUM,NA 134 mmol/L (136-145)
[2023-04-24 11:06] LABS: AMPHETAMINES SCREEN, URINE NEGATIVE (NEGATIVE); BARBITURATE SCREEN,URINE NEGATIVE (NEGATIVE); COCAINE METABOLITES,URINE NEGATIVE (NEGATIVE); METHADONE SCREEN, URINE NEGATIVE (NEGATIVE); METHAMPHETAMINE SCREEN, URINE NEGATIVE (NEGATIVE); OXYCODONE SCREEN,URINE NEGATIVE (NEGATIVE); PCP SCREEN,URINE NEGATIVE (NEGATIVE); THC SCREEN,URINE 50 NG/ML NEGATIVE (NEGATIVE)
[2023-04-24 11:07] LABS: ANION GAP 17.7 mmol/L (5-15); ESTIMATED GFR 105 mL/min (>=60)
[2023-04-24 11:07] LABS: BENZODIAZEPINES SCREEN,URINE POSITIVE (NEGATIVE); BUPRENORPHINE SCREEN,URINE NEGATIVE (NEGATIVE)
[2023-04-24 11:08] LABS: ACETAMINOPHEN 0 ug/ml (10-30)
[2023-04-24 11:12] LABS: BACTERIA,URINE NOT SEEN /HPF (NOT SEEN); MUCUS,URINE RARE /LPF (NOT SEEN); RBC,URINE 0-5 /HPF (NOT SEEN); SQUAMOUS EPITHELIAL CELLS,UR MANY /HPF (NOT SEEN); WBC,URINE 0-5 /HPF (NOT SEEN)
[2023-04-24 11:13] LABS: AMORPHOUS SEDIMENT,URINE FEW; HYALINE CASTS,URINE MODERATE
[2023-04-24] MEDS ORDERED: Magnesium Sulfate/Water 4 GM in Premix Bag 1 BAG IV ONE (11:32)
[2023-04-24] MEDS ORDERED: Thiamine 100 MG in Sodium Chloride 0.9% 50 ML IV ONE ×2 (11:59→16:00)
[2023-04-24] MEDS ORDERED: LORazepam 1 MG Tab PO PRN (11:59)
[2023-04-24] MEDS: Nicotine 21 MG/24 Hr Patch TRDERM SCH (13:22)
[2023-04-24] MEDS: Multivitamin Tab PO SCH (13:22)
[2023-04-24] MEDS ORDERED: LORazepam 0.5 MG Tab PO ONE (19:14)
[2023-04-24] MEDS: Sodium Chloride 0.9% 1,000 ML IV SCH (19:45)
[2023-04-25] MEDS: Sodium Chloride 0.9% 1,000 ML IV SCH (03:49)
[2023-04-25] MEDS: Nicotine 21 MG/24 Hr Patch TRDERM SCH (08:30)
[2023-04-25] MEDS: Thiamine 100 MG Tab PO SCH (08:31)
[2023-04-25] MEDS: Propranolol 80 MG Cap.ER PO SCH (08:31)
[2023-04-25] MEDS: Citalopram 20 MG Tab PO SCH (08:31)
[2023-04-25] MEDS: Multivitamin Tab PO SCH (08:31)
[2023-04-25 08:53] LABS: BASOPHILS PERCENT AUTO 0.1 % (0.2-1.2); EOSINOPHILS ABSOLUTE AUTO 0.1 x10^3/uL (0.0-0.5); EOSINOPHILS PERCENT AUTO 0.7 % (0.0-4.0); HEMATOCRIT 35.4 % (40.0-52.0); HEMOGLOBIN 12.8 g/dL (14.0-18.0); IMMATURE GRAN ABSOLUTE AUTO 0.02 x10^3/uL (0.00-0.07); LYMPHOCYTES ABSOLUTE AUTO 0.7 x10^3/uL (1.0-4.8); MEAN CORPUSCULAR HEMOGLOBIN 33.3 pg (26.0-32.0); MEAN CORPUSCULAR HGB CONC 36.2 g/dL (32.0-36.0); MEAN CORPUSCULAR VOLUME 92.2 fL (78.0-93.0); MONOCYTES ABSOLUTE AUTO 0.5 x10^3/uL (0.0-0.8); NEUTROPHILS ABSOLUTE AUTO 5.4 x10^3/uL (1.8-7.7); NEUTROPHILS PERCENT AUTO 79.9 % (50.0-80.0); PLATELET COUNT,PLT 191 x10^3/uL (130-400); RED BLOOD CELL COUNT 3.84 x10^6/uL (4.5-6.0); WHITE BLOOD CELL COUNT,WBC 6.7 x10^3/uL (4.0-10.0)
[2023-04-25 09:11] LABS: CALCIUM 8.4 mg/dL (8.5-10.1); CREATININE 0.7 mg/dL (0.70-1.30); EST CRCL DRUG DOSING (CG) 119.98 mL/min; MAGNESIUM 1.3 mg/dL (1.8-2.4); POTASSIUM,K 3.5 mmol/L (3.5-5.1)
[2023-04-25 09:13] LABS: ANION GAP 12.5 mmol/L (5-15)
[2023-04-25] MEDS: Magnesium Oxide 400 MG Tab PO SCH ×2 (10:46→20:34)
[2023-04-25] MEDS: cefTRIAXone 1 GM Vial IVPUSH SCH (10:48)
[2023-04-25] MEDS: Sodium Chloride 0.9% 10 ML Syringe FLUSH SCH (20:50)
[2023-04-25] MEDS ORDERED: Naltrexone 50 MG Tab PO SCH (21:00)
[2023-04-25] MEDS ORDERED: Melatonin 3 MG Tab PO SCH (21:00)
[2023-04-26] MEDS: LORazepam 1 MG Tab PO PRN ×2 (05:49→10:05)
[2023-04-26] MEDS: Sodium Chloride 0.9% 10 ML Syringe FLUSH SCH (08:30)
[2023-04-26 08:46] LABS: BASOPHILS PERCENT AUTO 0.4 % (0.2-1.2); EOSINOPHILS PERCENT AUTO 0.6 % (0.0-4.0); HEMOGLOBIN 12.9 g/dL (14.0-18.0); IMMATURE GRAN ABSOLUTE AUTO 0.01 x10^3/uL (0.00-0.07); LYMPHOCYTES ABSOLUTE AUTO 0.8 x10^3/uL (1.0-4.8); LYMPHOCYTES PERCENT AUTO 11.8 % (25.0-50.0); MEAN CORPUSCULAR HEMOGLOBIN 32.7 pg (26.0-32.0); MEAN CORPUSCULAR HGB CONC 34.9 g/dL (32.0-36.0); MEAN CORPUSCULAR VOLUME 93.9 fL (78.0-93.0); MONOCYTES ABSOLUTE AUTO 0.7 x10^3/uL (0.0-0.8); MONOCYTES PERCENT AUTO 10.6 % (2.0-11.0); NEUTROPHILS ABSOLUTE AUTO 5.1 x10^3/uL (1.8-7.7); NEUTROPHILS PERCENT AUTO 76.5 % (50.0-80.0); PLATELET COUNT,PLT 224 x10^3/uL (130-400); RED BLOOD CELL COUNT 3.94 x10^6/uL (4.5-6.0); WHITE BLOOD CELL COUNT,WBC 6.7 x10^3/uL (4.0-10.0)
[2023-04-26 09:20] LABS: CALCIUM 9.2 mg/dL (8.5-10.1); CREATININE 0.8 mg/dL (0.70-1.30); EST CRCL DRUG DOSING (CG) 103.91 mL/min; MAGNESIUM 1.2 mg/dL (1.8-2.4)
[2023-04-26] MEDS ORDERED: Magnesium Sulfate/Water 2 GM in Premix Bag 1 BAG IV ONE (09:37)
[2023-04-26] MEDS ORDERED: Nicotine 7 MG/24 Hr Patch TRDERM SCH (09:45)
[2023-04-26 10:05] VITALS: BP 145/104; PULSE 80
[2023-04-26] MEDS: Citalopram 20 MG Tab PO SCH (10:06)
[2023-04-26] MEDS: Thiamine 100 MG Tab PO SCH (10:06)
[2023-04-26] MEDS: Magnesium Oxide 400 MG Tab PO SCH (10:06)
[2023-04-26] MEDS: Propranolol 80 MG Cap.ER PO SCH (10:06)
[2023-04-26] MEDS: cefTRIAXone 1 GM Vial IVPUSH SCH (10:07)
[2023-04-26] MEDS: Nicotine 21 MG/24 Hr Patch TRDERM SCH (10:13)
[2023-04-26] MEDS: Multivitamin Tab PO SCH (10:14)
== END 2023-04-26 10:30 | disposition left against medical advice (07) | DRG 894 ==
LOC: VM.ED 10:18 → VM.MS 11:45
PROVIDERS: ADMIT Family Medicine; ATTEND Family Medicine
DX: F10.939 Alcohol use, unspecified with withdrawal, unspecified (principal); I42.9 Cardiomyopathy, unspecified; L05.91 Pilonidal cyst without abscess; E83.42 Hypomagnesemia; I10 Essential (primary) hypertension; F17.210 Nicotine dependence, cigarettes, uncomplicated; F41.9 Anxiety disorder, unspecified; E78.00 Pure hypercholesterolemia, unspecified; G89.29 Other chronic pain; M54.2 Cervicalgia; Z79.82 Long term (current) use of aspirin; Z79.899 Other long term (current) drug therapy; Z98.890 Other specified postprocedural states
CPT/HCPCS: 36415; 80048; 80053; 80143; 80179; 80305-QW; 80307; 81001; 83735; 85025; 93010; 96361; 96374; 99284; 99285-25; A9270-GY; J0696; J3411; J3475; J3490; J7030

== ENCOUNTER 2023-09-03 12:59 | Emergency (ER) | payer MEDICAID ==
[2023-09-03] MEDS ORDERED: LORazepam 2 MG/ML SDV IVPUSH ONE (13:34)
[2023-09-03] MEDS ORDERED: Sodium Chloride 0.9% 1,000 ML IV ONE (13:34)
[2023-09-03] MEDS ORDERED: Ondansetron 4 MG/2 ML SDV IVPUSH ONE (13:46)
[2023-09-03 13:47] LABS: BASOPHILS PERCENT AUTO 0.5 % (0.2-1.2); EOSINOPHILS ABSOLUTE AUTO 0.1 x10^3/uL (0.0-0.5); EOSINOPHILS PERCENT AUTO 0.7 % (0.0-4.0); HEMATOCRIT 41.2 % (40.0-52.0); HEMOGLOBIN 14.4 g/dL (14.0-18.0); IMMATURE GRAN ABSOLUTE AUTO 0.01 x10^3/uL (0.00-0.07); LYMPHOCYTES ABSOLUTE AUTO 1.2 x10^3/uL (1.0-4.8); LYMPHOCYTES PERCENT AUTO 16.1 % (25.0-50.0); MEAN CORPUSCULAR HEMOGLOBIN 32.9 pg (26.0-32.0); MEAN CORPUSCULAR VOLUME 94.1 fL (78.0-93.0); MONOCYTES ABSOLUTE AUTO 0.5 x10^3/uL (0.0-0.8); NEUTROPHILS ABSOLUTE AUTO 5.8 x10^3/uL (1.8-7.7); NEUTROPHILS PERCENT AUTO 75.6 % (50.0-80.0); PLATELET COUNT,PLT 221 x10^3/uL (130-400); RED BLOOD CELL COUNT 4.38 x10^6/uL (4.5-6.0); WHITE BLOOD CELL COUNT,WBC 7.7 x10^3/uL (4.0-10.0)
[2023-09-03 14:09] LABS: A/G RATIO 0.63; ALANINE AMINOTRANSFERASE,ALT 19 U/L (16-63); ALBUMIN 3.2 g/dL (3.4-5.0); ALKALINE PHOSPHATASE 93 U/L (46-116); ANION GAP 18.3 mmol/L (5-15); ASPARTATE AMNIOTRANSFERASE,AST 30 U/L (15-37); BILIRUBIN TOTAL 0.8 mg/dL (0.2-1.0); BLOOD UREA NITROGEN,BUN 10 mg/dL (7-18); C-REACTIVE PROTEIN 0.57 mg/dL (<=0.30); CALCIUM 8.9 mg/dL (8.5-10.1); CARBON DIOXIDE,CO2 26 mmol/L (21-32); CHLORIDE,CL 96 mmol/L (98-107); CREATININE 0.7 mg/dL (0.70-1.30); ESTIMATED GFR 113 mL/min (>=60); ETHANOL BLOOD MEDICAL 110 mg/dL (0-3); GLUCOSE RANDOM 104 mg/dL (70-99); POTASSIUM,K 4.3 mmol/L (3.5-5.1); PROTEIN TOTAL,TP 8.3 g/dL (6.4-8.2); SODIUM,NA 136 mmol/L (136-145)
[2023-09-03 14:53] VITALS: PULSE 80
[2023-09-03 15:15] LABS: APPEARANCE,URINE CLEAR (CLEAR); BILIRUBIN,URINE NEGATIVE (NEGATIVE); COLOR,URINE YELLOW (YELLOW); GLUCOSE,URINE NEGATIVE (NEGATIVE); KETONES,URINE 40 mg/dL (NEGATIVE); LEUKOCYTE ESTERASE,URINE NEGATIVE (NEGATIVE); NITRITE,URINE NEGATIVE (NEGATIVE); OCCULT BLOOD,URINE NEGATIVE (NEGATIVE); PH,URINE 5.5 (5.0-8.0); PROTEIN,URINE 30 mg/dL (NEGATIVE); UROBILINOGEN,URINE 0.2 EU/dL (0.2)
[2023-09-03] MEDS ORDERED: Lisinopril 10 MG Tab PO ONE (15:16)
[2023-09-03 15:20] LABS: AMPHETAMINES SCREEN, URINE NEGATIVE (NEGATIVE); BARBITURATE SCREEN,URINE NEGATIVE (NEGATIVE); BENZODIAZEPINES SCREEN,URINE NEGATIVE (NEGATIVE); BUPRENORPHINE SCREEN,URINE NEGATIVE (NEGATIVE); COCAINE METABOLITES,URINE NEGATIVE (NEGATIVE); METHADONE SCREEN, URINE NEGATIVE (NEGATIVE); METHAMPHETAMINE SCREEN, URINE NEGATIVE (NEGATIVE); OXYCODONE SCREEN,URINE POSITIVE (NEGATIVE); PCP SCREEN,URINE NEGATIVE (NEGATIVE); THC SCREEN,URINE 50 NG/ML NEGATIVE (NEGATIVE)
[2023-09-03 15:25] LABS: BACTERIA,URINE NOT SEEN /HPF (NOT SEEN); RBC,URINE NOT SEEN /HPF (NOT SEEN); SQUAMOUS EPITHELIAL CELLS,UR RARE /HPF (NOT SEEN); WBC,URINE NOT SEEN /HPF (NOT SEEN)
[2023-09-03 15:26] LABS: MUCUS,URINE RARE /LPF (NOT SEEN)
[2023-09-03 17:52] VITALS: BP 148/100
== END 2023-09-03 16:30 ==
LOC: VM.ED 12:59
DX: F10.220 Alcohol dependence with intoxication, uncomplicated (principal); F17.200 Nicotine dependence, unspecified, uncomplicated; I10 Essential (primary) hypertension; Z79.82 Long term (current) use of aspirin; Z79.899 Other long term (current) drug therapy
CPT/HCPCS: 80053; 80305; 80307; 81001; 85025; 86140; 96361; 96374; 96375; 99284; A9270; J2060; J2405; J7030

== ENCOUNTER 2024-05-18 17:37 | Emergency (ER) | payer SELFPAY ==
[2024-05-18 17:58] LABS: BASOPHILS PERCENT AUTO 0.2 % (0.2-1.2); EOSINOPHILS ABSOLUTE AUTO 0.1 x10^3/uL (0.0-0.5); EOSINOPHILS PERCENT AUTO 0.6 % (0.0-4.0); HEMATOCRIT 39.8 % (40.0-52.0); HEMOGLOBIN 13.8 g/dL (14.0-18.0); IMMATURE GRAN ABSOLUTE AUTO 0.01 x10^3/uL (0.00-0.07); LYMPHOCYTES ABSOLUTE AUTO 1.6 x10^3/uL (1.0-4.8); LYMPHOCYTES PERCENT AUTO 18.4 % (25.0-50.0); MEAN CORPUSCULAR HEMOGLOBIN 31.2 pg (26.0-32.0); MEAN CORPUSCULAR HGB CONC 34.7 g/dL (32.0-36.0); MONOCYTES ABSOLUTE AUTO 0.9 x10^3/uL (0.0-0.8); NEUTROPHILS ABSOLUTE AUTO 6.3 x10^3/uL (1.8-7.7); NEUTROPHILS PERCENT AUTO 70.7 % (50.0-80.0); PLATELET COUNT,PLT 266 x10^3/uL (130-400); RED BLOOD CELL COUNT 4.42 x10^6/uL (4.5-6.0); WHITE BLOOD CELL COUNT,WBC 8.9 x10^3/uL (4.0-10.0)
[2024-05-18] MEDS: Labetalol 20 MG/4 ML Syringe IVPUSH ONE ×2 (18:00→18:57)
[2024-05-18 18:15] LABS: A/G RATIO 0.72; ALBUMIN 3.4 g/dL (3.4-5.0); ANION GAP 15.8 mmol/L (5-15); BILIRUBIN TOTAL 0.5 mg/dL (0.2-1.0); CALCIUM 9.4 mg/dL (8.5-10.1); CREATININE 0.9 mg/dL (0.70-1.30); EST CRCL DRUG DOSING (CG) 93.74 mL/min; POTASSIUM,K 3.8 mmol/L (3.5-5.1); PROTEIN TOTAL,TP 8.1 g/dL (6.4-8.2)
[2024-05-18] MEDS: Propranolol 80 MG Cap.ER PO ONE (19:00)
[2024-05-18 19:22] VITALS: BP 150/108; PULSE 94
== END 2024-05-18 19:28 | disposition home or self-care (01) ==
LOC: VM.ED 17:37
DX: I16.0 Hypertensive urgency (principal); F10.10 Alcohol abuse, uncomplicated; E78.00 Pure hypercholesterolemia, unspecified; I10 Essential (primary) hypertension; F17.210 Nicotine dependence, cigarettes, uncomplicated; Z79.51 Long term (current) use of inhaled steroids; Z79.899 Other long term (current) drug therapy; Y90.9 Presence of alcohol in blood, level not specified
CPT/HCPCS: 80053; 80307; 85025; 93005; 96374; 96376; 99284-25; A9270-GY; J1920

== ENCOUNTER 2024-05-24 07:40 | Emergency (ER) | payer SELFPAY ==
[2024-05-24] MEDS ORDERED: Sodium Chloride 0.9% 10 ML Syringe FLUSH PRN (08:00)
[2024-05-24 08:06] LABS: BASOPHILS PERCENT AUTO 0.2 % (0.2-1.2); EOSINOPHILS ABSOLUTE AUTO 0.1 x10^3/uL (0.0-0.5); EOSINOPHILS PERCENT AUTO 1.1 % (0.0-4.0); HEMATOCRIT 41.5 % (40.0-52.0); HEMOGLOBIN 14.3 g/dL (14.0-18.0); IMMATURE GRAN ABSOLUTE AUTO 0.01 x10^3/uL (0.00-0.07); LYMPHOCYTES ABSOLUTE AUTO 1.3 x10^3/uL (1.0-4.8); LYMPHOCYTES PERCENT AUTO 14.5 % (25.0-50.0); MEAN CORPUSCULAR HGB CONC 34.5 g/dL (32.0-36.0); MONOCYTES ABSOLUTE AUTO 0.6 x10^3/uL (0.0-0.8); NEUTROPHILS ABSOLUTE AUTO 7.1 x10^3/uL (1.8-7.7); NEUTROPHILS PERCENT AUTO 77.1 % (50.0-80.0); PLATELET COUNT,PLT 293 x10^3/uL (130-400); RED BLOOD CELL COUNT 4.61 x10^6/uL (4.5-6.0); WHITE BLOOD CELL COUNT,WBC 9.2 x10^3/uL (4.0-10.0)
[2024-05-24] MEDS: Labetalol 20 MG/4 ML Syringe IVPUSH ONE (08:09)
[2024-05-24 08:36] LABS: A/G RATIO 0.71; ALBUMIN 3.6 g/dL (3.4-5.0); BILIRUBIN TOTAL 0.3 mg/dL (0.2-1.0); CALCIUM 9.7 mg/dL (8.5-10.1); CREATININE 0.8 mg/dL (0.70-1.30); EST CRCL DRUG DOSING (CG) 104.89 mL/min; MAGNESIUM 1.2 mg/dL (1.8-2.4); POTASSIUM,K 4.2 mmol/L (3.5-5.1); PROTEIN TOTAL,TP 8.7 g/dL (6.4-8.2); TSH ULTRASENSITIVE 0.661 uIU/mL (0.358-3.74)
[2024-05-24 08:37] LABS: ANION GAP 16.2 mmol/L (5-15)
[2024-05-24 08:41] VITALS: BP 156/115; PULSE 96
== END 2024-05-24 08:56 | disposition home or self-care (01) ==
LOC: VM.ED 07:40 → SUPCPDRO 07:40 → VM.ED 08:56
DX: I10 Essential (primary) hypertension (principal); E78.00 Pure hypercholesterolemia, unspecified; F17.210 Nicotine dependence, cigarettes, uncomplicated; Z79.51 Long term (current) use of inhaled steroids; Z79.82 Long term (current) use of aspirin; Z79.899 Other long term (current) drug therapy
CPT/HCPCS: 80053; 83735; 84443; 84484; 85025; 93005; 96374; 99284-25; J1920

== ENCOUNTER 2024-05-31 07:54 | Emergency (ER) | payer SELFPAY ==
[2024-05-31] MEDS: Labetalol 20 MG/4 ML Syringe IVPUSH ONE (08:10)
[2024-05-31 08:14] LABS: BASOPHILS PERCENT AUTO 0.3 % (0.2-1.2); EOSINOPHILS ABSOLUTE AUTO 0.1 x10^3/uL (0.0-0.5); EOSINOPHILS PERCENT AUTO 0.9 % (0.0-4.0); HEMATOCRIT 42.4 % (40.0-52.0); IMMATURE GRAN ABSOLUTE AUTO 0.02 x10^3/uL (0.00-0.07); LYMPHOCYTES ABSOLUTE AUTO 1.6 x10^3/uL (1.0-4.8); LYMPHOCYTES PERCENT AUTO 14.9 % (25.0-50.0); MEAN CORPUSCULAR HEMOGLOBIN 31.6 pg (26.0-32.0); MEAN CORPUSCULAR HGB CONC 35.4 g/dL (32.0-36.0); MEAN CORPUSCULAR VOLUME 89.3 fL (78.0-93.0); MONOCYTES PERCENT AUTO 9.7 % (2.0-11.0); NEUTROPHILS ABSOLUTE AUTO 7.8 x10^3/uL (1.8-7.7); PLATELET COUNT,PLT 264 x10^3/uL (130-400); RED BLOOD CELL COUNT 4.75 x10^6/uL (4.5-6.0); WHITE BLOOD CELL COUNT,WBC 10.6 x10^3/uL (4.0-10.0)
[2024-05-31 08:58] LABS: A/G RATIO 1.37; ALBUMIN 4.8 g/dL (3.4-5.0); BILIRUBIN TOTAL 0.6 mg/dL (0.2-1.0); CALCIUM 9.6 mg/dL (8.5-10.1); EST CRCL DRUG DOSING (CG) 84.03 mL/min; POTASSIUM,K 3.8 mmol/L (3.5-5.1); PROTEIN TOTAL,TP 8.3 g/dL (6.4-8.2)
[2024-05-31 08:59] LABS: ANION GAP 15.8 mmol/L (5-15)
[2024-05-31 09:27] VITALS: BP 163/114; PULSE 76
== END 2024-05-31 09:25 | disposition home or self-care (01) ==
LOC: SUPCPDRO 07:54 → VM.ED 07:54
DX: I10 Essential (primary) hypertension (principal); F17.210 Nicotine dependence, cigarettes, uncomplicated; Z79.82 Long term (current) use of aspirin; Z79.899 Other long term (current) drug therapy
CPT/HCPCS: 80053; 84484; 85025; 93005; 93010; 96374; 99284; J3490; J1920

== ENCOUNTER 2024-06-16 08:22 | Emergency (ER) | payer SELFPAY ==
[2024-06-16] MEDS ORDERED: Sodium Chloride 0.9% 10 ML Syringe FLUSH PRN (08:47)
[2024-06-16] MEDS: Lactated Ringers 1,000 ML IV ONE (09:00)
[2024-06-16 09:05] LABS: BASOPHILS PERCENT AUTO 0.3 % (0.2-1.2); EOSINOPHILS ABSOLUTE AUTO 0.1 x10^3/uL (0.0-0.5); EOSINOPHILS PERCENT AUTO 1.2 % (0.0-4.0); HEMATOCRIT 41.6 % (40.0-52.0); HEMOGLOBIN 14.6 g/dL (14.0-18.0); LYMPHOCYTES ABSOLUTE AUTO 1.2 x10^3/uL (1.0-4.8); LYMPHOCYTES PERCENT AUTO 15.7 % (25.0-50.0); MEAN CORPUSCULAR HEMOGLOBIN 31.3 pg (26.0-32.0); MEAN CORPUSCULAR HGB CONC 35.1 g/dL (32.0-36.0); MEAN CORPUSCULAR VOLUME 89.3 fL (78.0-93.0); MONOCYTES ABSOLUTE AUTO 0.8 x10^3/uL (0.0-0.8); MONOCYTES PERCENT AUTO 10.9 % (2.0-11.0); NEUTROPHILS ABSOLUTE AUTO 5.4 x10^3/uL (1.8-7.7); NEUTROPHILS PERCENT AUTO 71.9 % (50.0-80.0); PLATELET COUNT,PLT 239 x10^3/uL (130-400); RED BLOOD CELL COUNT 4.66 x10^6/uL (4.5-6.0); WHITE BLOOD CELL COUNT,WBC 7.5 x10^3/uL (4.0-10.0)
[2024-06-16] MEDS: cloNIDine 0.1 MG Tab PO ONE (09:20)
[2024-06-16] MEDS: droPERidol 5 MG/2 ML SDV IVPUSH ONE (09:21)
[2024-06-16 09:24] LABS: PROTHROMBIN TIME 10.4 SEC (8.9-11.5); PTT,PARTIAL THROMBOPLSTIN TIME 29.2 SEC (21.9-33.8)
[2024-06-16 09:34] LABS: ALANINE AMINOTRANSFERASE,ALT 13 U/L (16-63); ALBUMIN 3.5 g/dL (3.4-5.0); ALKALINE PHOSPHATASE 79 U/L (46-116); AMYLASE 16 U/L (25-115); ASPARTATE AMNIOTRANSFERASE,AST 13 U/L (15-37); BILIRUBIN TOTAL 0.7 mg/dL (0.2-1.0); BLOOD UREA NITROGEN,BUN 10 mg/dL (7-18); CALCIUM 9.4 mg/dL (8.5-10.1); CARBON DIOXIDE,CO2 34 mmol/L (21-32); CHLORIDE,CL 96 mmol/L (98-107); CREATININE 0.8 mg/dL (0.70-1.30); GLUCOSE RANDOM 129 mg/dL (70-99); MAGNESIUM 1.1 mg/dL (1.8-2.4); POTASSIUM,K 3.8 mmol/L (3.5-5.1); PROTEIN TOTAL,TP 7.9 g/dL (6.4-8.2); SODIUM,NA 137 mmol/L (136-145)
[2024-06-16 09:41] LABS: ANION GAP 10.8 mmol/L (5-15); ESTIMATED GFR 108 mL/min (>=60); ETHANOL BLOOD MEDICAL < 3 mg/dL (0-3)
[2024-06-16 13:52] VITALS: BP 148/90; PULSE 76
== END 2024-06-16 10:07 | disposition home or self-care (01) ==
LOC: VM.ED 08:22
DX: I10 Essential (primary) hypertension (principal); F10.10 Alcohol abuse, uncomplicated; Z79.82 Long term (current) use of aspirin; Z79.899 Other long term (current) drug therapy
CPT/HCPCS: 70450; 80053; 80307; 82150; 83735; 84484; 85025; 85610; 85730; 86140; 96361; 96374; 99284; A9270; J1790; J7120

== ENCOUNTER 2024-06-25 18:13 | Emergency (ER) | payer SELFPAY ==
[2024-06-25] MEDS ORDERED: Sodium Chloride 0.9% 10 ML Syringe FLUSH PRN (19:00)
[2024-06-25 19:08] LABS: BASOPHILS PERCENT AUTO 0.4 % (0.2-1.2); EOSINOPHILS ABSOLUTE AUTO 0.2 x10^3/uL (0.0-0.5); EOSINOPHILS PERCENT AUTO 2.7 % (0.0-4.0); HEMATOCRIT 41.7 % (40.0-52.0); HEMOGLOBIN 14.3 g/dL (14.0-18.0); IMMATURE GRAN ABSOLUTE AUTO 0.01 x10^3/uL (0.00-0.07); LYMPHOCYTES PERCENT AUTO 25.3 % (25.0-50.0); MEAN CORPUSCULAR HEMOGLOBIN 31.3 pg (26.0-32.0); MEAN CORPUSCULAR HGB CONC 34.3 g/dL (32.0-36.0); MEAN CORPUSCULAR VOLUME 91.2 fL (78.0-93.0); MONOCYTES ABSOLUTE AUTO 0.8 x10^3/uL (0.0-0.8); MONOCYTES PERCENT AUTO 9.6 % (2.0-11.0); NEUTROPHILS ABSOLUTE AUTO 4.8 x10^3/uL (1.8-7.7); NEUTROPHILS PERCENT AUTO 61.9 % (50.0-80.0); PLATELET COUNT,PLT 253 x10^3/uL (130-400); RED BLOOD CELL COUNT 4.57 x10^6/uL (4.5-6.0); WHITE BLOOD CELL COUNT,WBC 7.8 x10^3/uL (4.0-10.0)
[2024-06-25 19:12] VITALS: PULSE 95
[2024-06-25 19:17] LABS: PROTHROMBIN TIME 10.2 SEC (8.9-11.5)
[2024-06-25] MEDS: Lactated Ringers 1,000 ML IV ONE (19:17)
[2024-06-25 19:23] LABS: A/G RATIO 0.76; ALBUMIN 3.4 g/dL (3.4-5.0); BILIRUBIN TOTAL 0.3 mg/dL (0.2-1.0); C-REACTIVE PROTEIN 1.42 mg/dL (<=0.50); CALCIUM 8.8 mg/dL (8.5-10.1); CREATININE 0.8 mg/dL (0.70-1.30); EST CRCL DRUG DOSING (CG) 108.86 mL/min; MAGNESIUM 1.3 mg/dL (1.8-2.4); PHOSPHORUS 3.5 mg/dL (2.6-4.7); POTASSIUM,K 4.1 mmol/L (3.5-5.1); PROTEIN TOTAL,TP 7.9 g/dL (6.4-8.2)
[2024-06-25] MEDS: PHENobarbital Sodium 65 MG/ML SDV IVPUSH ONE (19:24)
[2024-06-25 19:29] LABS: ANION GAP 10.1 mmol/L (5-15)
[2024-06-25 20:01] LABS: APPEARANCE,URINE CLEAR (CLEAR); BILIRUBIN,URINE NEGATIVE (NEGATIVE); COLOR,URINE YELLOW (YELLOW); GLUCOSE,URINE NEGATIVE (NEGATIVE); KETONES,URINE NEGATIVE (NEGATIVE); LEUKOCYTE ESTERASE,URINE NEGATIVE (NEGATIVE); NITRITE,URINE NEGATIVE (NEGATIVE); OCCULT BLOOD,URINE NEGATIVE (NEGATIVE); PH,URINE 7.5 (5.0-8.0); PROTEIN,URINE 30 mg/dL (NEGATIVE); UROBILINOGEN,URINE 0.2 EU/dL (0.2)
[2024-06-25] MEDS: Magnesium Sulfate/Water 4 GM in Premix Bag 1 BAG IV ONE (20:05)
[2024-06-25 20:07] LABS: BACTERIA,URINE NOT SEEN /HPF (NOT SEEN); HYALINE CASTS,URINE RARE; MUCUS,URINE NOT SEEN /LPF (NOT SEEN); RBC,URINE NOT SEEN /HPF (NOT SEEN); SQUAMOUS EPITHELIAL CELLS,UR RARE /HPF (NOT SEEN); WBC,URINE 0-5 /HPF (NOT SEEN)
[2024-06-25] MEDS: amLODIPine 5 MG Tab PO ONE ×2 (20:16→20:56)
[2024-06-25 22:43] VITALS: BP 148/110
== END 2024-06-25 21:05 | disposition home or self-care (01) ==
LOC: VM.ED 18:13
DX: F10.130 Alcohol abuse with withdrawal, uncomplicated (principal); E83.42 Hypomagnesemia; I10 Essential (primary) hypertension; E78.00 Pure hypercholesterolemia, unspecified; Z79.899 Other long term (current) drug therapy; Z79.891 Long term (current) use of opiate analgesic
CPT/HCPCS: 80053; 80307; 81001; 83735; 84100; 84484; 85025; 85610; 86140; 93005; 96361; 96365; 96375; 99284; 99284-25; A9270-GY; J2560; J3475; J7120

== ENCOUNTER 2024-07-05 08:46 | Emergency (ER) | payer SELFPAY ==
[2024-07-05 09:07] VITALS: PULSE 96
[2024-07-05 09:12] LABS: BASOPHILS PERCENT AUTO 0.4 % (0.2-1.2); EOSINOPHILS ABSOLUTE AUTO 0.1 x10^3/uL (0.0-0.5); EOSINOPHILS PERCENT AUTO 1.6 % (0.0-4.0); HEMATOCRIT 39.5 % (40.0-52.0); HEMOGLOBIN 13.8 g/dL (14.0-18.0); IMMATURE GRAN ABSOLUTE AUTO 0.01 x10^3/uL (0.00-0.07); LYMPHOCYTES ABSOLUTE AUTO 1.1 x10^3/uL (1.0-4.8); LYMPHOCYTES PERCENT AUTO 15.9 % (25.0-50.0); MEAN CORPUSCULAR HEMOGLOBIN 31.5 pg (26.0-32.0); MEAN CORPUSCULAR HGB CONC 34.9 g/dL (32.0-36.0); MEAN CORPUSCULAR VOLUME 90.2 fL (78.0-93.0); MONOCYTES ABSOLUTE AUTO 0.9 x10^3/uL (0.0-0.8); MONOCYTES PERCENT AUTO 12.6 % (2.0-11.0); NEUTROPHILS ABSOLUTE AUTO 4.9 x10^3/uL (1.8-7.7); NEUTROPHILS PERCENT AUTO 69.4 % (50.0-80.0); PLATELET COUNT,PLT 204 x10^3/uL (130-400); RED BLOOD CELL COUNT 4.38 x10^6/uL (4.5-6.0)
[2024-07-05] MEDS: amLODIPine 5 MG Tab PO ONE (09:18)
[2024-07-05 09:29] LABS: A/G RATIO 0.78; ALBUMIN 3.5 g/dL (3.4-5.0); BILIRUBIN TOTAL 0.7 mg/dL (0.2-1.0); CALCIUM 9.5 mg/dL (8.5-10.1); CREATININE 0.9 mg/dL (0.70-1.30); EST CRCL DRUG DOSING (CG) 98.15 mL/min; MAGNESIUM 1.1 mg/dL (1.8-2.4); POTASSIUM,K 3.6 mmol/L (3.5-5.1)
[2024-07-05 09:37] LABS: ANION GAP 11.6 mmol/L (5-15)
[2024-07-05 10:00] VITALS: BP 162/122
== END 2024-07-05 10:12 | disposition home or self-care (01) ==
LOC: SUPCPDRO 08:46 → VM.ED 08:46
DX: I10 Essential (primary) hypertension (principal); R42 Dizziness and giddiness; E83.42 Hypomagnesemia; F17.210 Nicotine dependence, cigarettes, uncomplicated; Z79.82 Long term (current) use of aspirin; Z79.899 Other long term (current) drug therapy
CPT/HCPCS: 80053; 83735; 85025; 99284; A9270

== ENCOUNTER 2024-09-02 14:32 | Emergency (ER) | payer SELFPAY ==
[2024-09-02] MEDS: Sodium Chloride 0.9% 1,000 ML IV ONE (15:20)
[2024-09-02 15:28] LABS: BASOPHILS PERCENT AUTO 0.2 % (0.2-1.2); HEMATOCRIT 40.5 % (40.0-52.0); HEMOGLOBIN 14.8 g/dL (14.0-18.0); IMMATURE GRAN ABSOLUTE AUTO 0.01 x10^3/uL (0.00-0.07); LYMPHOCYTES ABSOLUTE AUTO 0.6 x10^3/uL (1.0-4.8); LYMPHOCYTES PERCENT AUTO 7.8 % (25.0-50.0); MEAN CORPUSCULAR HEMOGLOBIN 32.7 pg (26.0-32.0); MEAN CORPUSCULAR HGB CONC 36.5 g/dL (32.0-36.0); MEAN CORPUSCULAR VOLUME 89.4 fL (78.0-93.0); MONOCYTES ABSOLUTE AUTO 0.5 x10^3/uL (0.0-0.8); MONOCYTES PERCENT AUTO 6.4 % (2.0-11.0); NEUTROPHILS PERCENT AUTO 85.5 % (50.0-80.0); PLATELET COUNT,PLT 113 x10^3/uL (130-400); RED BLOOD CELL COUNT 4.53 x10^6/uL (4.5-6.0); WHITE BLOOD CELL COUNT,WBC 8.2 x10^3/uL (4.0-10.0)
[2024-09-02 15:46] LABS: A/G RATIO 0.61; ALANINE AMINOTRANSFERASE,ALT 57 U/L (16-63); ALKALINE PHOSPHATASE 89 U/L (46-116); ASPARTATE AMNIOTRANSFERASE,AST 102 U/L (15-37); BILIRUBIN TOTAL 0.8 mg/dL (0.2-1.0); BLOOD UREA NITROGEN,BUN 30 mg/dL (7-18); CALCIUM 8.8 mg/dL (8.5-10.1); CARBON DIOXIDE,CO2 28 mmol/L (21-32); CHLORIDE,CL 92 mmol/L (98-107); ESTIMATED GFR 92 mL/min (>=60); ETHANOL BLOOD MEDICAL 251 mg/dL (0-3); GLUCOSE RANDOM 166 mg/dL (70-99); MAGNESIUM 1.4 mg/dL (1.8-2.4); PROTEIN TOTAL,TP 7.9 g/dL (6.4-8.2); SODIUM,NA 136 mmol/L (136-145)
[2024-09-02 17:04] VITALS: PULSE 91
[2024-09-02 17:05] VITALS: BP 118/75
== END 2024-09-02 18:40 | disposition short-term general hospital (02) ==
LOC: VM.ED 14:32
DX: F10.229 Alcohol dependence with intoxication, unspecified (principal); I10 Essential (primary) hypertension; Z79.899 Other long term (current) drug therapy; Z79.82 Long term (current) use of aspirin
CPT/HCPCS: 80053; 80307; 83735; 85025; 96360; 99284; 99284-25; J7030

== ENCOUNTER 2024-10-21 20:16 | Emergency (ER) | payer SELFPAY ==
[2024-10-21] MEDS ORDERED: Sodium Chloride 0.9% 10 ML Syringe FLUSH PRN (20:52)
[2024-10-21] MEDS: Lactated Ringers 1,000 ML IV ONE (21:30)
[2024-10-21 21:32] LABS: BASOPHILS PERCENT AUTO 0.1 % (0.2-1.2); EOSINOPHILS PERCENT AUTO 0.1 % (0.0-4.0); HEMATOCRIT 41.3 % (40.0-52.0); HEMOGLOBIN 14.2 g/dL (14.0-18.0); IMMATURE GRAN ABSOLUTE AUTO 0.05 x10^3/uL (0.00-0.07); LYMPHOCYTES ABSOLUTE AUTO 1.3 x10^3/uL (1.0-4.8); LYMPHOCYTES PERCENT AUTO 10.1 % (25.0-50.0); MEAN CORPUSCULAR HEMOGLOBIN 32.7 pg (26.0-32.0); MEAN CORPUSCULAR HGB CONC 34.4 g/dL (32.0-36.0); MEAN CORPUSCULAR VOLUME 95.2 fL (78.0-93.0); MONOCYTES ABSOLUTE AUTO 0.6 x10^3/uL (0.0-0.8); MONOCYTES PERCENT AUTO 4.6 % (2.0-11.0); NEUTROPHILS ABSOLUTE AUTO 11.2 x10^3/uL (1.8-7.7); NEUTROPHILS PERCENT AUTO 84.7 % (50.0-80.0); PLATELET COUNT,PLT 310 x10^3/uL (130-400); RED BLOOD CELL COUNT 4.34 x10^6/uL (4.5-6.0); WHITE BLOOD CELL COUNT,WBC 13.2 x10^3/uL (4.0-10.0)
[2024-10-21] MEDS: fentaNYL 100 MCG/2 ML SDV IVPUSH ONE (21:48)
[2024-10-21 21:49] LABS: INR 0.9 (0.9-1.1); PROTHROMBIN TIME 9.6 SEC (8.9-11.5); PTT,PARTIAL THROMBOPLSTIN TIME 24.4 SEC (21.9-33.8)
[2024-10-21] MEDS: Thiamine 200 MG/2 ML MDV IVPUSH ONE (21:50)
[2024-10-21 21:51] LABS: A/G RATIO 0.78; ALANINE AMINOTRANSFERASE,ALT 28 U/L (16-63); ALBUMIN 3.8 g/dL (3.4-5.0); ALKALINE PHOSPHATASE 76 U/L (46-116); AMYLASE 26 U/L (25-115); ASPARTATE AMNIOTRANSFERASE,AST 30 U/L (15-37); BILIRUBIN TOTAL 0.5 mg/dL (0.2-1.0); BLOOD UREA NITROGEN,BUN 16 mg/dL (7-18); CALCIUM 9.5 mg/dL (8.5-10.1); CARBON DIOXIDE,CO2 24 mmol/L (21-32); CHLORIDE,CL 97 mmol/L (98-107); CREATININE 0.9 mg/dL (0.70-1.30); ETHANOL BLOOD MEDICAL 146 mg/dL (0-3); GLUCOSE RANDOM 97 mg/dL (70-99); LIPASE 44 U/L (19-71); MAGNESIUM 1.4 mg/dL (1.8-2.4); POTASSIUM,K 4.4 mmol/L (3.5-5.1); PROTEIN TOTAL,TP 8.7 g/dL (6.4-8.2); SODIUM,NA 139 mmol/L (136-145)
[2024-10-21 21:52] LABS: ANION GAP 22.4 mmol/L (5-15); ESTIMATED GFR 104 mL/min (>=60)
[2024-10-21] MEDS ORDERED: LORazepam 2 MG/ML SDV IVPUSH ONE (22:05)
[2024-10-21] MEDS: HYDROmorphone 1 MG/ML Syringe IVPUSH ONE (22:20)
[2024-10-21] MEDS: PHENobarbitaL sodium 260 MG in Sodium Chloride 0.9% 100 ML IV ONE (22:29)
[2024-10-21] MEDS: Iopamidol 612 MG/ML 100 ML Bottle IVPUSH ONE (22:58)
[2024-10-22] MEDS: Magnesium Sulfate/Water Premix 2 GM in Premix Bag 1 BAG IV ONE (01:33)
[2024-10-22] MEDS: HYDROmorphone 1 MG/ML Syringe IVPUSH ONE (02:38)
[2024-10-22 05:59] VITALS: BP 146/92
[2024-10-22 06:00] VITALS: PULSE 94
== END 2024-10-22 02:45 | disposition short-term general hospital (02) ==
LOC: VM.ED 20:16
DX: S22.41XA Multiple fractures of ribs, right side, initial encounter for closed fracture (principal); F10.930 Alcohol use, unspecified with withdrawal, uncomplicated; I10 Essential (primary) hypertension; E78.00 Pure hypercholesterolemia, unspecified; Z79.82 Long term (current) use of aspirin; Z79.899 Other long term (current) drug therapy; W19.XXXA Unspecified fall, initial encounter
CPT/HCPCS: 80053; 80307; 82150; 83690; 83735; 85025; 85610; 85730; 96361; 96365; 96367; 96375; 96376; 99285; J1171; J2560; J3010; J3411; J3475; J3490; J7120; Q9967; 70450; 71101-RT; 71260; 72125; 99284

== ENCOUNTER 2024-12-06 15:33 | Emergency (ER) | payer MEDICAID ==
[2024-12-06] MEDS: amLODIPine 5 MG Tab PO ONE (16:21)
[2024-12-06 16:33] LABS: BASOPHILS PERCENT AUTO 0.2 % (0.2-1.2); EOSINOPHILS ABSOLUTE AUTO 0.2 x10^3/uL (0.0-0.5); EOSINOPHILS PERCENT AUTO 2.1 % (0.0-4.0); HEMATOCRIT 37.4 % (40.0-52.0); HEMOGLOBIN 12.9 g/dL (14.0-18.0); IMMATURE GRAN ABSOLUTE AUTO 0.01 x10^3/uL (0.00-0.07); LYMPHOCYTES ABSOLUTE AUTO 2.4 x10^3/uL (1.0-4.8); LYMPHOCYTES PERCENT AUTO 27.6 % (25.0-50.0); MEAN CORPUSCULAR HEMOGLOBIN 31.6 pg (26.0-32.0); MEAN CORPUSCULAR HGB CONC 34.5 g/dL (32.0-36.0); MEAN CORPUSCULAR VOLUME 91.7 fL (78.0-93.0); MONOCYTES ABSOLUTE AUTO 0.7 x10^3/uL (0.0-0.8); MONOCYTES PERCENT AUTO 8.3 % (2.0-11.0); NEUTROPHILS ABSOLUTE AUTO 5.3 x10^3/uL (1.8-7.7); NEUTROPHILS PERCENT AUTO 61.7 % (50.0-80.0); PLATELET COUNT,PLT 255 x10^3/uL (130-400); RED BLOOD CELL COUNT 4.08 x10^6/uL (4.5-6.0); WHITE BLOOD CELL COUNT,WBC 8.5 x10^3/uL (4.0-10.0)
[2024-12-06 16:55] LABS: A/G RATIO 0.71; ALBUMIN 3.2 g/dL (3.4-5.0); BILIRUBIN TOTAL 0.4 mg/dL (0.2-1.0); CALCIUM 9.4 mg/dL (8.5-10.1); EST CRCL DRUG DOSING (CG) 88.36 mL/min; POTASSIUM,K 3.7 mmol/L (3.5-5.1); PROTEIN TOTAL,TP 7.7 g/dL (6.4-8.2)
[2024-12-06 16:56] LABS: ANION GAP 14.7 mmol/L (5-15)
[2024-12-06] MEDS: Sulfamethoxazole/Trimethoprim 800-160 MG Tab PO ONE (17:23)
[2024-12-06 19:32] VITALS: PULSE 74
[2024-12-06 19:33] VITALS: BP 143/102
== END 2024-12-06 17:39 | disposition home or self-care (01) ==
LOC: VM.ED 15:33
DX: I16.0 Hypertensive urgency (principal); L05.91 Pilonidal cyst without abscess; J45.909 Unspecified asthma, uncomplicated; F17.210 Nicotine dependence, cigarettes, uncomplicated; Z79.51 Long term (current) use of inhaled steroids; Z79.899 Other long term (current) drug therapy
CPT/HCPCS: 36415; 80053; 85025; 87070; 87147; 99284; A9270-GY

== ENCOUNTER 2024-12-17 23:48 | Emergency (ER) | payer MEDICAID ==
[2024-12-18] MEDS: Diazepam 2 MG Tab PO ONE (01:05)
[2024-12-18 01:06] LABS: BASOPHILS PERCENT AUTO 0.2 % (0.2-1.2); EOSINOPHILS PERCENT AUTO 0.3 % (0.0-4.0); HEMOGLOBIN 14.8 g/dL (14.0-18.0); IMMATURE GRAN ABSOLUTE AUTO 0.01 x10^3/uL (0.00-0.07); LYMPHOCYTES ABSOLUTE AUTO 1.6 x10^3/uL (1.0-4.8); MEAN CORPUSCULAR HEMOGLOBIN 31.8 pg (26.0-32.0); MEAN CORPUSCULAR HGB CONC 35.2 g/dL (32.0-36.0); MEAN CORPUSCULAR VOLUME 90.1 fL (78.0-93.0); MONOCYTES ABSOLUTE AUTO 0.6 x10^3/uL (0.0-0.8); MONOCYTES PERCENT AUTO 5.5 % (2.0-11.0); NEUTROPHILS ABSOLUTE AUTO 8.3 x10^3/uL (1.8-7.7); NEUTROPHILS PERCENT AUTO 78.9 % (50.0-80.0); PLATELET COUNT,PLT 254 x10^3/uL (130-400); RED BLOOD CELL COUNT 4.66 x10^6/uL (4.5-6.0); WHITE BLOOD CELL COUNT,WBC 10.5 x10^3/uL (4.0-10.0)
[2024-12-18] MEDS: Acetaminophen 325 MG Tab PO ONE (01:06)
[2024-12-18] MEDS: Propranolol 80 MG Cap.ER PO ONE (01:15)
[2024-12-18] MEDS: Escitalopram 10 MG Tab PO STA (01:15)
[2024-12-18 01:27] LABS: A/G RATIO 0.75; ALBUMIN 3.6 g/dL (3.4-5.0); BILIRUBIN TOTAL 0.3 mg/dL (0.2-1.0); CALCIUM 9.3 mg/dL (8.5-10.1); CREATININE 0.7 mg/dL (0.70-1.30); EST CRCL DRUG DOSING (CG) 119.35 mL/min; MAGNESIUM 1.2 mg/dL (1.8-2.4); POTASSIUM,K 3.6 mmol/L (3.5-5.1); PROTEIN TOTAL,TP 8.4 g/dL (6.4-8.2)
[2024-12-18 01:30] LABS: ANION GAP 20.6 mmol/L (5-15)
[2024-12-18] MEDS: Magnesium Oxide 400 MG Tab PO ONE (01:41)
[2024-12-18 01:43] VITALS: BP 137/102; PULSE 114
[2024-12-18] MEDS: chlordiazePOXIDE 25 MG Cap PO STA (03:05)
== END 2024-12-18 03:24 | disposition other institution (70) ==
LOC: VM.ED 23:48
DX: G44.209 Tension-type headache, unspecified, not intractable (principal); F10.229 Alcohol dependence with intoxication, unspecified; F10.230 Alcohol dependence with withdrawal, uncomplicated; I10 Essential (primary) hypertension; E83.42 Hypomagnesemia; F17.200 Nicotine dependence, unspecified, uncomplicated; Z79.899 Other long term (current) drug therapy; Z79.1 Long term (current) use of non-steroidal anti-inflammatories (NSAID)
CPT/HCPCS: 36415; 80053; 83735; 85025; 99284; 99285; A9270-GY

== ENCOUNTER 2025-01-04 12:53 | Emergency (ER) | payer MEDICAID ==
[2025-01-04 13:11] LABS: AMPHETAMINE, URINE NEGATIVE (NEGATIVE); BARBITUATES,URINE NEGATIVE (NEGATIVE); BENZODIAZEPINES,URINE POSITIVE (NEGATIVE); BUPRENORPHINE,URINE NEGATIVE (NEGATIVE); COCAINE,URINE NEGATIVE (NEGATIVE); MARIJUANA,URINE NEGATIVE (NEGATIVE); METHADONE,URINE NEGATIVE (NEGATIVE); METHAMPHETAMINE,URINE NEGATIVE (NEGATIVE); METHYLENEDIOXYMETHAMP,UR NEGATIVE (NEGATIVE); OPIATES,URINE NEGATIVE (NEGATIVE); OXYCODONE,URINE NEGATIVE (NEGATIVE); PHENCYCLIDINE,URINE NEGATIVE
[2025-01-04 13:22] LABS: BASOPHILS PERCENT AUTO 0.4 % (0.2-1.2); EOSINOPHILS ABSOLUTE AUTO 0.1 x10^3/uL (0.0-0.5); EOSINOPHILS PERCENT AUTO 0.6 % (0.0-4.0); HEMATOCRIT 42.4 % (40.0-52.0); HEMOGLOBIN 14.8 g/dL (14.0-18.0); IMMATURE GRAN ABSOLUTE AUTO 0.02 x10^3/uL (0.00-0.07); LYMPHOCYTES ABSOLUTE AUTO 2.1 x10^3/uL (1.0-4.8); LYMPHOCYTES PERCENT AUTO 19.1 % (25.0-50.0); MEAN CORPUSCULAR HEMOGLOBIN 30.8 pg (26.0-32.0); MEAN CORPUSCULAR HGB CONC 34.9 g/dL (32.0-36.0); MEAN CORPUSCULAR VOLUME 88.1 fL (78.0-93.0); MONOCYTES ABSOLUTE AUTO 0.8 x10^3/uL (0.0-0.8); MONOCYTES PERCENT AUTO 7.4 % (2.0-11.0); NEUTROPHILS PERCENT AUTO 72.3 % (50.0-80.0); PLATELET COUNT,PLT 392 x10^3/uL (130-400); RED BLOOD CELL COUNT 4.81 x10^6/uL (4.5-6.0); WHITE BLOOD CELL COUNT,WBC 11.1 x10^3/uL (4.0-10.0)
[2025-01-04 13:39] LABS: ALANINE AMINOTRANSFERASE,ALT 21 U/L (16-63); ALBUMIN 3.5 g/dL (3.4-5.0); ALKALINE PHOSPHATASE 111 U/L (46-116); ANION GAP 16.8 mmol/L (5-15); ASPARTATE AMNIOTRANSFERASE,AST 20 U/L (15-37); BILIRUBIN TOTAL 0.8 mg/dL (0.2-1.0); BLOOD UREA NITROGEN,BUN 12 mg/dL (7-18); CALCIUM 9.9 mg/dL (8.5-10.1); CARBON DIOXIDE,CO2 29 mmol/L (21-32); CHLORIDE,CL 92 mmol/L (98-107); CREATININE 1.2 mg/dL (0.70-1.30); ESTIMATED GFR 73 mL/min (>=60); GLUCOSE RANDOM 128 mg/dL (70-99); POTASSIUM,K 3.8 mmol/L (3.5-5.1); PROTEIN TOTAL,TP 8.5 g/dL (6.4-8.2); SODIUM,NA 134 mmol/L (136-145)
[2025-01-04 13:40] LABS: ACETAMINOPHEN 0 ug/ml (10-30); ETHANOL BLOOD MEDICAL < 3 mg/dL (0-3)
[2025-01-04 14:16] VITALS: BP 136/103; PULSE 96
== END 2025-01-04 14:00 ==
LOC: VM.ED 12:53
DX: F10.10 Alcohol abuse, uncomplicated (principal); I10 Essential (primary) hypertension; E78.00 Pure hypercholesterolemia, unspecified; Z13.9 Encounter for screening, unspecified; Z79.899 Other long term (current) drug therapy; Y90.9 Presence of alcohol in blood, level not specified
CPT/HCPCS: 36415; 80053; 80143; 80179; 80305-QW; 80307; 85025; 99283

== ENCOUNTER 2025-02-27 10:47 | Emergency (ER) | payer MEDICAID ==
[2025-02-27 11:10] VITALS: PULSE 80
[2025-02-27] MEDS ORDERED: Sodium Chloride 0.9% 10 ML Syringe FLUSH PRN (11:16)
[2025-02-27] MEDS: Labetalol 20 MG/4 ML Syringe IVPUSH ONE (11:27)
[2025-02-27 11:42] LABS: BASOPHILS PERCENT AUTO 0.3 % (0.2-1.2); EOSINOPHILS ABSOLUTE AUTO 0.1 x10^3/uL (0.0-0.5); EOSINOPHILS PERCENT AUTO 1.2 % (0.0-4.0); HEMATOCRIT 41.9 % (40.0-52.0); HEMOGLOBIN 14.6 g/dL (14.0-18.0); IMMATURE GRAN ABSOLUTE AUTO 0.01 x10^3/uL (0.00-0.07); LYMPHOCYTES ABSOLUTE AUTO 1.7 x10^3/uL (1.0-4.8); LYMPHOCYTES PERCENT AUTO 17.6 % (25.0-50.0); MEAN CORPUSCULAR HGB CONC 34.8 g/dL (32.0-36.0); MONOCYTES ABSOLUTE AUTO 0.8 x10^3/uL (0.0-0.8); MONOCYTES PERCENT AUTO 8.5 % (2.0-11.0); NEUTROPHILS PERCENT AUTO 72.3 % (50.0-80.0); PLATELET COUNT,PLT 295 x10^3/uL (130-400); RED BLOOD CELL COUNT 4.71 x10^6/uL (4.5-6.0); WHITE BLOOD CELL COUNT,WBC 9.7 x10^3/uL (4.0-10.0)
[2025-02-27] MEDS: cloNIDine 0.1 MG Tab PO ONE (11:58)
[2025-02-27 12:05] VITALS: BP 148/110
[2025-02-27 12:05] LABS: APPEARANCE,URINE CLEAR (CLEAR); BILIRUBIN,URINE NEGATIVE (NEGATIVE); COLOR,URINE YELLOW (YELLOW); GLUCOSE,URINE NEGATIVE (NEGATIVE); KETONES,URINE NEGATIVE (NEGATIVE); LEUKOCYTE ESTERASE,URINE NEGATIVE (NEGATIVE); NITRITE,URINE NEGATIVE (NEGATIVE); OCCULT BLOOD,URINE NEGATIVE (NEGATIVE); PROTEIN,URINE >=300 mg/dL (NEGATIVE); UROBILINOGEN,URINE 0.2 EU/dL (0.2)
[2025-02-27 12:07] LABS: PROTHROMBIN TIME 10.4 SEC (9.6-12.0); PTT,PARTIAL THROMBOPLSTIN TIME 27.1 SEC (23.5-33.2)
[2025-02-27 12:09] LABS: AMPHETAMINES SCREEN, URINE NEGATIVE (NEGATIVE); BARBITURATE SCREEN,URINE NEGATIVE (NEGATIVE)
[2025-02-27 12:10] LABS: BENZODIAZEPINES SCREEN,URINE NEGATIVE (NEGATIVE); BUPRENORPHINE SCREEN,URINE NEGATIVE (NEGATIVE); COCAINE METABOLITES,URINE NEGATIVE (NEGATIVE); METHAMPHETAMINE SCREEN, URINE NEGATIVE (NEGATIVE)
[2025-02-27 12:11] LABS: METHADONE SCREEN, URINE NEGATIVE (NEGATIVE); OXYCODONE SCREEN,URINE POSITIVE (NEGATIVE); PCP SCREEN,URINE NEGATIVE (NEGATIVE); THC SCREEN,URINE 50 NG/ML NEGATIVE (NEGATIVE)
[2025-02-27 12:15] LABS: A/G RATIO 0.81; ALANINE AMINOTRANSFERASE,ALT 19 U/L (16-63); ALBUMIN 3.8 g/dL (3.4-5.0); ALKALINE PHOSPHATASE 96 U/L (46-116); ASPARTATE AMNIOTRANSFERASE,AST 18 U/L (15-37); BILIRUBIN TOTAL 0.6 mg/dL (0.2-1.0); BLOOD UREA NITROGEN,BUN 16 mg/dL (7-18); C-REACTIVE PROTEIN 1.55 mg/dL (<=0.50); CALCIUM 9.4 mg/dL (8.5-10.1); CARBON DIOXIDE,CO2 33 mmol/L (21-32); CHLORIDE,CL 99 mmol/L (98-107); EST CRCL DRUG DOSING (CG) 93.08 mL/min; GLUCOSE RANDOM 121 mg/dL (70-99); MAGNESIUM 1.6 mg/dL (1.8-2.4); POTASSIUM,K 4.2 mmol/L (3.5-5.1); PROTEIN TOTAL,TP 8.5 g/dL (6.4-8.2); SODIUM,NA 138 mmol/L (136-145); TSH ULTRASENSITIVE 0.641 uIU/mL (0.358-3.74)
[2025-02-27 12:16] LABS: BACTERIA,URINE RARE /HPF (NOT SEEN); EPITHELIAL CELLS,URINE FEW; MUCUS,URINE FEW /LPF (NOT SEEN); RBC,URINE 0-5 /HPF (NOT SEEN); WBC,URINE 0-5 /HPF (NOT SEEN)
[2025-02-27 12:22] LABS: ANION GAP 10.2 mmol/L (5-15); ESTIMATED GFR 91 mL/min (>=60)
[2025-02-27 12:42] LABS: ACETAMINOPHEN 0 ug/ml (10-30); ETHANOL BLOOD MEDICAL < 3 mg/dL (0-3)
== END 2025-02-27 12:50 ==
LOC: VM.ED 10:47
DX: I10 Essential (primary) hypertension (principal); E78.00 Pure hypercholesterolemia, unspecified; Z79.899 Other long term (current) drug therapy
CPT/HCPCS: 80053; 80143; 80305; 80307; 81001; 82140; 83735; 84443; 84484; 85025; 85610; 85730; 86140; 93005; 96374; 99284; A9270; J1920; 36415

== ENCOUNTER 2025-04-28 12:18 | Emergency (ER) | payer MEDICAID ==
[2025-04-28 12:39] VITALS: BP 130/101; PULSE 73
[2025-04-28] MEDS ORDERED: Sodium Chloride 0.9% 10 ML Syringe FLUSH PRN (12:43)
[2025-04-28 12:49] LABS: BASOPHILS PERCENT AUTO 0.4 % (0.2-1.2); EOSINOPHILS ABSOLUTE AUTO 0.2 x10^3/uL (0.0-0.5); EOSINOPHILS PERCENT AUTO 2.8 % (0.0-4.0); HEMATOCRIT 40.1 % (40.0-52.0); HEMOGLOBIN 13.8 g/dL (14.0-18.0); IMMATURE GRAN ABSOLUTE AUTO 0.01 x10^3/uL (0.00-0.07); LYMPHOCYTES ABSOLUTE AUTO 1.5 x10^3/uL (1.0-4.8); LYMPHOCYTES PERCENT AUTO 20.5 % (25.0-50.0); MEAN CORPUSCULAR HEMOGLOBIN 30.9 pg (26.0-32.0); MEAN CORPUSCULAR HGB CONC 34.4 g/dL (32.0-36.0); MEAN CORPUSCULAR VOLUME 89.7 fL (78.0-93.0); MONOCYTES ABSOLUTE AUTO 0.7 x10^3/uL (0.0-0.8); MONOCYTES PERCENT AUTO 9.1 % (2.0-11.0); NEUTROPHILS PERCENT AUTO 67.1 % (50.0-80.0); PLATELET COUNT,PLT 201 x10^3/uL (130-400); RED BLOOD CELL COUNT 4.47 x10^6/uL (4.5-6.0); WHITE BLOOD CELL COUNT,WBC 7.4 x10^3/uL (4.0-10.0)
[2025-04-28 13:22] LABS: A/G RATIO 0.78; ALBUMIN 3.6 g/dL (3.4-5.0); ANION GAP 14.3 mmol/L (5-15); BILIRUBIN TOTAL 0.4 mg/dL (0.2-1.0); C-REACTIVE PROTEIN 3.12 mg/dL (<=0.50); CALCIUM 9.4 mg/dL (8.5-10.1); CREATININE 0.8 mg/dL (0.70-1.30); EST CRCL DRUG DOSING (CG) 113.54 mL/min; POTASSIUM,K 4.3 mmol/L (3.5-5.1); PROTEIN TOTAL,TP 8.2 g/dL (6.4-8.2)
[2025-04-28] MEDS: diphenhydrAMINE 50 MG/ML SDV IVPUSH ONE (13:23)
[2025-04-28] MEDS: Metoclopramide 10 MG/2 ML SDV IVPUSH ONE (13:23)
[2025-04-28] MEDS: Ketorolac 15 MG/ML SDV IVPUSH ONE (13:23)
[2025-04-28] MEDS: Lactated Ringers 1,000 ML IV ONE (13:23)
[2025-04-28] MEDS: Clindamycin Phosphate in D5W 600 MG in Premix Bag 1 BAG IV ONE (13:23)
== END 2025-04-28 14:36 | disposition home or self-care (01) ==
LOC: VM.ED 12:18 → SUPCPDRO 12:18 → VM.ED 14:36
DX: G44.209 Tension-type headache, unspecified, not intractable (principal); K02.9 Dental caries, unspecified; R79.89 Other specified abnormal findings of blood chemistry; I10 Essential (primary) hypertension; E78.00 Pure hypercholesterolemia, unspecified; I25.10 Atherosclerotic heart disease of native coronary artery without angina pectoris; Z79.899 Other long term (current) drug therapy
CPT/HCPCS: 70450; 80053; 83605; 85025; 86140; 96361; 96365; 96375; 99284; J0736; J1200; J1885; J2765; J7120

== ENCOUNTER 2025-09-11 16:02 | Emergency (ER) | payer MEDICAID ==
[2025-09-11] MEDS ORDERED: Sodium Chloride 0.9% 10 ML Syringe FLUSH PRN (16:04)
[2025-09-11 16:22] LABS: BASOPHILS ABSOLUTE AUTO 0.1 x10^3/uL (0.0-0.2); BASOPHILS PERCENT AUTO 0.5 % (0.2-1.2); EOSINOPHILS ABSOLUTE AUTO 0.3 x10^3/uL (0.0-0.5); EOSINOPHILS PERCENT AUTO 2.9 % (0.0-4.0); IMMATURE GRAN ABSOLUTE AUTO 0.01 x10^3/uL (0.00-0.07); IMMATURE GRAN PERCENT AUTO 0.10 % (0.00-0.43); LYMPHOCYTES ABSOLUTE AUTO 1.2 x10^3/uL (1.0-4.8); LYMPHOCYTES PERCENT AUTO 12.4 % (25.0-50.0); MONOCYTES ABSOLUTE AUTO 0.7 x10^3/uL (0.0-0.8); MONOCYTES PERCENT AUTO 6.9 % (2.0-11.0); NEUTROPHILS ABSOLUTE AUTO 7.7 x10^3/uL (1.8-7.7); NEUTROPHILS PERCENT AUTO 77.2 % (50.0-80.0); PLATELET COUNT,PLT 264 x10^3/uL (130-400); RED BLOOD CELL COUNT 4.58 x10^6/uL (4.5-6.0); WHITE BLOOD CELL COUNT,WBC 10.0 x10^3/uL (4.0-10.0)
[2025-09-11 16:46] LABS: A/G RATIO 0.73; ALANINE AMINOTRANSFERASE,ALT 22 U/L (16-63); ASPARTATE AMNIOTRANSFERASE,AST 18 U/L (15-37); BILIRUBIN TOTAL 0.4 mg/dL (0.2-1.0); BLOOD UREA NITROGEN,BUN 16 mg/dL (7-18); CARBON DIOXIDE,CO2 30 mmol/L (21-32); CHLORIDE,CL 101 mmol/L (98-107); CREATINE KINASE,CK 80 U/L (39-308); CREATININE 0.9 mg/dL (0.70-1.30); GLUCOSE RANDOM 122 mg/dL (70-99); POTASSIUM,K 4.1 mmol/L (3.5-5.1); PROTEIN TOTAL,TP 8.3 g/dL (6.4-8.2); SODIUM,NA 138 mmol/L (136-145)
[2025-09-11 16:49] LABS: ESTIMATED GFR 103 mL/min (>=60)
[2025-09-11 16:56] LABS: ETHANOL BLOOD MEDICAL < 3 mg/dL (0-3)
[2025-09-11 17:55] VITALS: BP 140/105; PULSE 80
== END 2025-09-11 17:15 | disposition home or self-care (01) ==
LOC: VM.ED 16:02
DX: I16.0 Hypertensive urgency (principal); I10 Essential (primary) hypertension; E78.00 Pure hypercholesterolemia, unspecified; Z79.899 Other long term (current) drug therapy
CPT/HCPCS: 36415; 80053; 80307; 82550; 84484; 85025; 99284

== ENCOUNTER 2025-09-18 14:43 | Emergency (ER) | payer BC, MEDICAID ==
[2025-09-18 16:13] VITALS: BP 151/104; PULSE 79
== END 2025-09-18 15:30 | disposition home or self-care (01) ==
LOC: VM.ED 14:43
DX: I10 Essential (primary) hypertension (principal); E78.00 Pure hypercholesterolemia, unspecified; Z79.899 Other long term (current) drug therapy
CPT/HCPCS: 99283